=== PATIENT | female | born 1950 | race Caucasian/White ===

== ENCOUNTER 2023-05-31 11:11 | Emergency (ER) | payer MEDICARE, SELFPAY ==
--- NOTE | ~2023-05-31 | CT_ITS ---
EXAMINATION: CT HEAD WITHOUT CONTRAST CLINICAL INFORMATION: Fall. COMPARISON: None available. TECHNIQUE: Contiguous axial imaging was performed from the skull base to vertex without intravenous administration of contrast. This CT examination was performed using dose optimization techniques as appropriate, variously including the following: *Automated exposure control *Adjustment of mA and/or kV according to patient size (this includes techniques or standardized protocols for targeted exams where dose is matched to indication/reason for exam; i.e. extremities or head) *Use of iterative reconstruction technique DLP: 936 mGy-cm FINDINGS: There is no intracranial hemorrhage. There is no evidence of acute/subacute cerebral or cerebellar infarction. There is no midline shift or mass effect. No extra-axial fluid collection. The ventricles are normal in size. The ocular lenses are surgically absent. The orbits are otherwise unremarkable. The calvarium is intact. The mastoid air cells are well aerated. There is a small amount of mucosal thickening along the posterior wall of the left sphenoid sinus. The visualized paranasal sinuses are otherwise clear. CT/CT head/brain wo IV con IMPRESSION: No acute intracranial pathology.
--- NOTE | ~2023-05-31 | XR_ITS ---
EXAMINATION: XR RIGHT SHOULDER XR RIGHT WRIST XR RIGHT ELBOW CLINICAL INFORMATION: Status post fall. Right shoulder and right arm pain. COMPARISON: None. TECHNIQUE: AP, lateral and oblique views of the right elbow were obtained. PA and lateral views of the right wrist were obtained. AP, Grashey and transscapular Y views of the right shoulder were obtained. FINDINGS: There is decreased bone mineralization. Right shoulder: There is a comminuted fracture involving the surgical neck of the humerus with associated fracture of the glenoid. There is displaced fracture of the greater tuberosity. There is a sizable joint lipohemarthrosis. Acromioclavicular joint is intact. 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 There is fusion of the carpal metacarpal joints as well as the interphalangeal joints. There is subluxation at the MCP joints. Right elbow: Anatomic alignment. 3 mm well-corticated calcification is seen within the soft tissues along the medial epicondyle. No surrounding soft tissue swelling. Spurring of the olecranon. No significant joint effusion. XR/XR elbow RT min 3V IMPRESSION: Comminuted impacted fracture involving the surgical neck humerus with associated fractures of the glenoid and greater tuberosity. There is a sizable joint lipohemarthrosis.
--- NOTE | ~2023-05-31 | XR_ITS ---
EXAMINATION: XR RIGHT SHOULDER XR RIGHT WRIST XR RIGHT ELBOW CLINICAL INFORMATION: Status post fall. Right shoulder and right arm pain. COMPARISON: None. TECHNIQUE: AP, lateral and oblique views of the right elbow were obtained. PA and lateral views of the right wrist were obtained. AP, Grashey and transscapular Y views of the right shoulder were obtained. FINDINGS: There is decreased bone mineralization. Right shoulder: There is a comminuted fracture involving the surgical neck of the humerus with associated fracture of the glenoid. There is displaced fracture of the greater tuberosity. There is a sizable joint lipohemarthrosis. Acromioclavicular joint is intact. 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 There is fusion of the carpal metacarpal joints as well as the interphalangeal joints. There is subluxation at the MCP joints. Right elbow: Anatomic alignment. 3 mm well-corticated calcification is seen within the soft tissues along the medial epicondyle. No surrounding soft tissue swelling. Spurring of the olecranon. No significant joint effusion. XR/XR shoulder RT min 2V IMPRESSION: Comminuted impacted fracture involving the surgical neck humerus with associated fractures of the glenoid and greater tuberosity. There is a sizable joint lipohemarthrosis.
--- NOTE | ~2023-05-31 | CT_ITS ---
EXAMINATION: CT CERVICAL SPINE WITHOUT CONTRAST CLINICAL INFORMATION: Status post fall. COMPARISON: None available. TECHNIQUE: Noncontrast computed tomography of the cervical spine was performed. This CT examination was performed using dose optimization techniques as appropriate, variously including the following: *Automated exposure control *Adjustment of mA and/or kV according to patient size (this includes techniques or standardized protocols for targeted exams where dose is matched to indication/reason for exam; i.e. extremities or head) *Use of iterative reconstruction technique DLP: 936 mGy-cm FINDINGS: There is straightening of the cervical lordosis. There is trace retrolisthesis of C3 in relation to C4. There is trace retrolisthesis of C5 in relation to C6. There is trace anterolisthesis of C6 in relation to C7. The vertebral bodies demonstrate preserved stature. The facet joints are anatomically aligned. There is significant bilateral multilevel facet joint arthropathy. The C1-C2 relationship is anatomic. There is significant degenerative disease involving the atlantoaxial joint on the left. The dens is intact. Prevertebral soft tissue is normal in appearance. There is no cervical spine fracture. Paraspinal soft tissue is within normal limits. There is moderate spinal canal stenosis at C5-C6. The visualized lung apices are clear. The thyroid gland is normal in appearance. CT/CT cervical spine wo IV con IMPRESSION: No acute osseous cervical spine abnormality. There is multilevel cervical spondylosis, moderate in severity as described. Fleischner guidelines were followed.
--- NOTE | ~2023-05-31 | XR_ITS ---
EXAMINATION: XR RIGHT SHOULDER XR RIGHT WRIST XR RIGHT ELBOW CLINICAL INFORMATION: Status post fall. Right shoulder and right arm pain. COMPARISON: None. TECHNIQUE: AP, lateral and oblique views of the right elbow were obtained. PA and lateral views of the right wrist were obtained. AP, Grashey and transscapular Y views of the right shoulder were obtained. FINDINGS: There is decreased bone mineralization. Right shoulder: There is a comminuted fracture involving the surgical neck of the humerus with associated fracture of the glenoid. There is displaced fracture of the greater tuberosity. There is a sizable joint lipohemarthrosis. Acromioclavicular joint is intact. 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 There is fusion of the carpal metacarpal joints as well as the interphalangeal joints. There is subluxation at the MCP joints. Right elbow: Anatomic alignment. 3 mm well-corticated calcification is seen within the soft tissues along the medial epicondyle. No surrounding soft tissue swelling. Spurring of the olecranon. No significant joint effusion. XR/XR hand wrist RT IMPRESSION: Comminuted impacted fracture involving the surgical neck humerus with associated fractures of the glenoid and greater tuberosity. There is a sizable joint lipohemarthrosis.
--- NOTE | 2023-05-31 11:25 | ED_ITS ---
HPI - General Adult General Chief complaint: Fall Stated complaint: fell outside, R shoulder and finger inj Time Seen by Provider: 05/31/23 12:02 Source: patient and family (patient's ) Mode of arrival: ambulatory Limitations: no limitations History of Present Illness HPI narrative: Patient is a 73 year old assigned female at with a history of atrial fib, takes eliquis, presenting to the emergency department today with right shoulder pain after a fall. Patient states that she tripped after missing a step and fell on her right side. Patient denies any loss of consciousness or head strike. Patient denies any dizziness, lightheadedness, abdominal pain, nausea, vomiting, fever, chills, blurry vision, double vision, loss of vision, chest pain, difficulty breathing, shortness of breath, back pain, night sweats, pain with urination, increased urinary frequency, increased urinary urgency, blood in her urine or stool, syncope or a near syncopal episode, bowel incontinence, bladder incontinence, bowel retention, bladder retention, or any other complaints at this time. Onset (ago): minute(s) Location: right and upper extremity Severity: moderate Severity scale (1-10): 5 Quality: aching Pain Consistency: constant Relieving factors: immobilization Exacerbating factors: movement Associated symptoms: denies other symptoms Treatments prior to arrival: none Related Data Previous Rx's Medication Instructions Recorded tramadol 50 mg tablet 50 mg PO Q6H PRN pain #7 tabs 05/31/23 Allergies Allergy/AdvReac Type Severity Reaction Status Date / Time No Known Allergies Allergy Verified 05/31/23 11:27 Review of Systems Constitutional: Constitutional: Reports no additional constitutional complaints, Denies chills, Denies fever(s) and Denies night sweats Eyes: Eyes: Reports no additional eye complaints, Denies blurry vision, Denies change in vision, Denies diplopia, Denies eye discharge, Denies loss of vision and Denies eye pain ENT: Denies dizziness Cardiovascular: Cardiovascular: Reports no additional cardiovascular complaints, Denies chest pain, Denies lightheadedness, Denies Loss of Consciousness and Denies dyspnea Respiratory: Respiratory: Reports no additional respiratory complaints and Denies dyspnea Gastrointestinal: Gastrointestinal: Reports no additional gastrointestinal complaints, Denies abdominal pain, Denies melena, Denies hematochezia, Denies change in bowel habits and Denies change in stool character Genitourinary: Genitourinary: Denies hematuria, Denies urinary frequency, Denies dysuria, Denies urinary incontinence, Denies urinary hesitancy and Denies urinary urgency Musculoskeletal: Musculoskeletal: Reports no additional musculoskeletal complaints, Denies numbness and Denies tingling Comments: right shoulder pain Neurologic: Denies dizziness, Denies loss of vision, Denies numbness and Denies tingling Psychiatric: Psychiatric: Reports no additional psychiatric complaints Endocrine: Endocrine: Reports no additional endocrine complaints Hematologic/Lymphatic: Hematologic/Lymphatic: Reports no additional hematologic/lymphatic complaints Allergic/Immunologic: Allergic/Immunologic: Reports no additional allergic/immunologic complaints PMFSH Past Medical History Attestation statement: The following information was validated with the patient. (patient's validated all information) Source: old records reviewed, obtained from family (patient's provided additional history and confirmed the history provided by the patient.) and nursing notes reviewed Medical History Rheumatoid arthritis Aortic stenosis Mitral regurgitation Afib Surgical History H/O foot surgery History of partial hysterectomy H/O hand surgery Social History Social History Alcohol intake: current Alcohol intake frequency: holidays/special occasions only Smoked in Last 30 Days: No Use of substances other than those prescribed or required for medical reasons: No Advance Directives: No Advance Directives Information Provided: Yes Physical Exam ED Vital Signs: Vital Signs - 24 hr 05/31/23 11:26 05/31/23 12:43 05/31/23 14:59 Temperature 97.5 F 97.9 F 98.2 F Pulse Rate 71 74 68 Respiratory Rate 18 18 18 Blood Pressure 133/84 132/91 H 123/71 Pulse Oximetry 95 95 95 Oxygen Delivery Method Room Air Room Air Room Air BMI result Body Mass Index 27.3 Const General: cooperative, no acute distress, alert and awake Nutritional Appearance: well nourished Orientation/consciousness: patient oriented x3 Limitations: no limitations HENMT Head: Yes normal to inspection and Yes atraumatic Ears: hearing grossly normal bilaterally and external ears normal General nose exam: Normal external nose present, no nasal discharge noted and no epistaxis Face and sinus: Yes normal facial exam, No abrasion and No laceration Mouth: Normal oral and palatal mucosa present, no drooling and no muffled voice Eyes General: appearance normal, both eyes and all related structures Periorbital: periorbital findings normal Eyelids: Yes eyelids normal Conjunctivae: conjunctivae normal Pupils: Equal, round and reactive pupils present EOM: EOMs intact bilaterally Neck Neck: Yes normal visual inspection, Yes full ROM and Yes no lymphadenopathy Chest Chest palpation & inspection: normal inspection of the chest Resp Effort & Inspection: normal respiratory effort and able to speak in complete sentences GI Inspection: Yes normal to inspection Neuro General: patient oriented x3 and moves all extremities Cranial nerves: Yes Equal, round and reactive pupils present Cognition (Neuro): normal cognition Motor exam (neuro): 5/5 motor strength present throughout Sensory Exam: Normal double simultaneous stimulation for sensation Coordination: [id number] test normal Extrem Other: pain with right shoulder ROM General: Yes capillary refill normal Psych Appearance: grossly normal Mental Status: mental status grossly normal Affect: normal affect Attitude: cooperative Thought process: Normal thought process present Thought content: Normal thought content present Insight: Good insight present (Psych) Course Course Course Narrative: RME- 73 year old female presents for evaluation after a fall. Complains of mostly right shoulder and elbow pain. Also has a laceration of right 3rd finger. She is anticoagulated for a fib with Eliquis. Plan for imaging Medications Administered Discontinued Medications Generic Name Dose Route Start Last Admin Trade Name Italoq PRN Reason Stop Dose Admin Oxycodone HCl 10 mg 05/31/23 13:25 05/31/23 13:32 Oxycodone Hcl Immed Release 5 Mg Tablet PO 05/31/23 13:26 10 mg ONCE ONE Administration Oxycodone HCl 10 mg 05/31/23 15:46 05/31/23 15:55 Oxycodone Hcl Immed Release 5 Mg Tablet PO 05/31/23 15:47 10 mg ONCE ONE Administration Procedures Orthopedic Splinting/Casting Injury #1: Side: right Upper Extremity Injury Location: shoulder Upper Extremity Immobilizer: sling/shoulder immobilizer Medical Decision Making Medical Decision Making [facility] Narrative: Patient is a 73 year old assigned female at with a history of atrial fib, on eliquis, presenting to the emergency department today with right shoulder pain. Patient's physical exam showed pain with right shoulder ROM. Patient's head and C-spine CTs showed no acute process. Patient's right wrist and right elbow x-rays showed no acute process. Patient's right shoulder x-ray showed a humerus fracture. I consulted with the orthopedic team who recommended placing the patient in a sling and having her follow up on an outpatient basis. I explained my physical exam findings as well as all test results to the patient and the patient's . I answered all questions asked by the patient and the patient's . Patient's right arm was placed in a sling, without incident. Patient's PMS was intact prior to and after sling placement. I stressed the importance of the patient taking her medication as prescribed. I stressed the importance of the patient following up with her primary care provider and an orthopedic provider. I stressed the importance of the patient returning to the emergency department immediately if her symptoms were to worsen or if she were to develop any dizziness, shortness of breath, difficulty breathing, chest pain, blurry vision, loss of vision, nausea, vomiting, abdominal pain, fever, chills, back pain, or any other complaints. Patient and the patient's verbalized agreement and understanding with this treatment plan and discharge. Differential Diagnosis Differential Diagnoses: The differential diagnosis associated with the presentation includes Fall Humerus fracture Shoulder pain Shoulder strain Admission/Observation Consideration of admission/observation: Escalation of care including admission/observation considered Patient would have been admitted to the hospital had her work up had any findings where hospital admission was appropriate and her clinical presentation warranted hospital admission. Consult Healthcare Provider Management of the patient was discussed with: Head Waiter/Waitress (spoke to the orthop edic team as noted in the MDM Rationale portion of this note.) Independent Interpretation I performed an independent interpretation of an: Plain X-Ray Interpretation: My interpretation is in agreement with the radiologist's impression of these imaging studies. EXAMINATION: CT HEAD WITHOUT CONTRAST CLINICAL INFORMATION: Fall. COMPARISON: None available. TECHNIQUE: Contiguous axial imaging was performed from the skull base to vertex without intravenous administration of contrast. This CT examination was performed using dose optimization techniques as appropriate, variously including the following: *Automated exposure control *Adjustment of mA and/or kV according to patient size (this includes techniques or standardized protocols for targeted exams where dose is matched to indication/reason for exam; i.e. extremities or head) *Use of iterative reconstruction technique DLP: 936 mGy-cm FINDINGS: There is no intracranial hemorrhage. There is no evidence of acute/subacute cerebral or cerebellar infarction. There is no midline shift or mass effect. No extra-axial fluid collection. The ventricles are normal in size. The ocular lenses are surgically absent. The orbits are otherwise unremarkable. The calvarium is intact. The mastoid air cells are well aerated. There is a small amount of mucosal thickening along the posterior wall of the left sphenoid sinus. The visualized paranasal sinuses are otherwise clear. CT/CT head/brain wo IV con IMPRESSION: No acute intracranial pathology. Dictated By: Macho Schroeder Jr, DO Signed By: Electronically signed by Macho Schroeder Jr, DO 05/31/23 1455 EXAMINATION: CT CERVICAL SPINE WITHOUT CONTRAST CLINICAL INFORMATION: Status post fall. COMPARISON: None available. TECHNIQUE: Noncontrast computed tomography of the cervical spine was performed. This CT examination was performed using dose optimization techniques as appropriate, variously including the following: *Automated exposure control *Adjustment of mA and/or kV according to patient size (this includes techniques or standardized protocols for targeted exams where dose is matched to indication/reason for exam; i.e. extremities or head) *Use of iterative reconstruction technique DLP: 936 mGy-cm FINDINGS: There is straightening of the cervical lordosis. There is trace retrolisthesis of C3 in relation to C4. There is trace retrolisthesis of C5 in relation to C6. There is trace anterolisthesis of C6 in relation to C7. The vertebral bodies demonstrate preserved stature. The facet joints are anatomically aligned. There is significant bilateral multilevel facet joint arthropathy. The C1-C2 relationship is anatomic. There is significant degenerative disease involving the atlantoaxial joint on the left. The dens is intact. Prevertebral soft tissue is normal in appearance. There is no cervical spine fracture. Paraspinal soft tissue is within normal limits. There is moderate spinal canal stenosis at C5-C6. The visualized lung apices are clear. The thyroid gland is normal in appearance. CT/CT cervical spine wo IV con IMPRESSION: No acute osseous cervical spine abnormality. There is multilevel cervical spondylosis, moderate in severity as described. Fleischner guidelines were followed. Dictated By: Macho Schroeder Jr, DO Signed By: Electronically signed by Macho Schroeder Jr, DO 05/31/23 1501 EXAMINATION: XR RIGHT SHOULDER XR RIGHT WRIST XR RIGHT ELBOW CLINICAL INFORMATION: Status post fall. Right shoulder and right arm pain. COMPARISON: None. TECHNIQUE: AP, lateral and oblique views of the right elbow were obtained. PA and lateral views of the right wrist were obtained. AP, Grashey and transscapular Y views of the right shoulder were obtained. FINDINGS: There is decreased bone mineralization. Right shoulder: There is a comminuted fracture involving the surgical neck of the humerus with associated fracture of the glenoid. There is displaced fracture of the greater tuberosity. There is a sizable joint lipohemarthrosis. Acromioclavicular joint is intact. 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 There is fusion of the carpal metacarpal joints as well as the interphalangeal joints. There is subluxation at the MCP joints. Right elbow: Anatomic alignment. 3 mm well-corticated calcification is seen within the soft tissues along the medial epicondyle. No surrounding soft tissue swelling. Spurring of the olecranon. No significant joint effusion. XR/XR hand wrist RT IMPRESSION: Comminuted impacted fracture involving the surgical neck humerus with associated fractures of the glenoid and greater tuberosity. There is a sizable joint lipohemarthrosis. Dictated By: Fernando Holliday MD Signed By: Electronically signed by Fernando Holliday MD 05/31/23 1343 Radiology Impression Discussion of test interpretation with radiology: I have reviewed the radiologist's reading. Independent Historian Clinical information obtained from an independent historian. History obtained from or confirmed by: Spouse (patient's provided additional history and confirmed the history provided by the patient.) Critical Care Time Critical Care Time Critical Care Time: Yes Total Critical Care Time: 45 Attestation: I spent 45 minutes of Critical Care Time with this patient. This does not include time spent on separately reported billable procedures. Discharge Plan Discharge Clinical Impression: Fracture, humerus Patient Disposition: Home, Self-Care Instructions: Arm Fracture in Adults (ED), How to Use a Sling (ED) Additional Instructions: Every 1 hour, take your sling off down and move your wrist + elbow. Follow up with your primary care provider and an orthopedic provider. Take Tylenol and Ibuprofen for pain. Return to the emergency department immediately if your symptoms worsen or if you develop any dizziness, shortness of breath, difficulty breathing, chest pain, blurry vision, loss of vision, nausea, vomiting, abdominal pain, fever, chills, back pain, or any other complaints. Prescriptions: New tramadol 50 mg tablet 50 mg PO Q6H PRN (Reason: pain) Qty: 7 0RF Referrals: [facility] [place] Orthopedic Surgeons [Provider Group] (Call to establish and follow up with an orthopedic provider.) Uko-Abasi,Nohelia, [employer]PR[employer] ENGINEER [Primary Care Provider] - Print Language: Tongan
[2023-05-31 11:26] VITALS: BP 133/84; PULSE 71; RESP 18; TEMP 36.4; O2SAT 95; BMI 27.3
[2023-05-31 12:43] VITALS: BP 132/91; PULSE 74; RESP 18; TEMP 36.6; O2SAT 95
[2023-05-31] MEDS: oxyCODONE HCl Immed Release 5 MG TABLET 10 MG PO ×2 (13:32→15:55)
--- NOTE | 2023-05-31 13:33 | PC.NURSE ---
pt a&ox3, c/o rt arm pain, vss, pt has +csm/pulses to RUE, pt medicated per order, call jackson within reach, will continue to monitor
[2023-05-31 14:59] VITALS: BP 123/71; PULSE 68; RESP 18; TEMP 36.8; O2SAT 95
--- NOTE | 2023-05-31 14:59 | PC.NURSE ---
patient a&ox3, vss, pt c/o 10/08 rt arm pain, pt awaiting radiology results, family at bedside, call jackson within reach, will continue to monitor
== END 2023-05-31 16:28 | disposition home or self-care (01) ==
PROVIDERS: Emergency Provider Emergency Medicine Emergency Medical Services; PCP Nurse Practitioner Family
DX: S42.211A Unspecified displaced fracture of surgical neck of right humerus, initial encounter for closed fracture (principal); M25.521 Pain in right elbow; I48.91 Unspecified atrial fibrillation; Z79.01 Long term (current) use of anticoagulants; W10.9XXA Fall (on) (from) unspecified stairs and steps, initial encounter; Y93.9 Activity, unspecified; Y92.9 Unspecified place or not applicable; Y99.9 Unspecified external cause status
CPT/HCPCS: 70450; 72125; 73030; 73080; 73110; 73130; 99284

== ENCOUNTER 2023-06-01 11:58 | Emergency (ER) | payer MEDICARE, SELFPAY ==
--- NOTE | 2023-06-01 12:02 | ECG_ITS ---
Test Reason : CHEST PAIN Blood Pressure : / mmHG Vent. Rate : 078 BPM Atrial Rate : 078 BPM P-R Int : 192 ms QRS Dur : 082 ms QT Int : 404 ms P-R-T Axes : 054 005 036 degrees QTc Int : 460 ms Normal sinus rhythm Minimal voltage criteria for LVH, may be normal variant ( Sokolow-Goyal ) Borderline ECG No previous ECGs available Referred By: Samir Lamb Electronically Signed By:EBONY HOLLAND
[2023-06-01 12:30] VITALS: BP 139/72; PULSE 78; RESP 20; TEMP 37.3; O2SAT 94; BMI 28.1
--- NOTE | 2023-06-01 12:32 | ED_ITS ---
HPI - General Adult General Chief complaint: Nausea/Vomiting/Diarrhea Stated complaint: rapid heart beat Time Seen by Provider: 06/01/23 13:51 Source: patient Mode of arrival: ambulatory Limitations: no limitations History of Present Illness HPI narrative: A 73-year-old female history of AFib on Eliquis presenting to the emergency department with complaints of right shoulder pain after fall yesterday, patient was diagnosed with a humerus fracture, she was seen here in the emergency department, discharged home with pain medicine. Despite taking pain medicine patient reports pain is worsening. She reports the pain is so severe that she gets palpitations and shortness of breath at times. She tells me that the pain medicine she was sent home with is making her nauseous. She comes in primarily for pain control. Denies chest pain, shortness of breath, nausea, vomiting, abdominal pain, headache, vision changes, dizziness and weakness. No numbness or tingling at this time. Patient has not yet seen ortho. Related Data Home Medications Medication Instructions Recorded Confirmed Vitamin D3 50,000 units PO QWEEK 06/02/23 06/02/23 apixaban 5 mg tablet (Eliquis) 5 mg PO BID 06/02/23 06/02/23 diltiazem HCl 240 mg 240 mg PO DAILY 06/02/23 06/02/23 capsule,extended release 24 hr donepezil 5 mg tablet 5 mg PO BEDTIME 06/02/23 06/02/23 levothyroxine 75 mcg tablet 75 mcg PO DAILY 06/02/23 06/02/23 losartan 25 mg tablet 25 mg PO DAILY 06/02/23 06/02/23 Previous Rx's Medication Instructions Recorded tramadol 50 mg tablet 50 mg PO Q6H PRN pain #7 tabs 05/31/23 acetaminophen 325 mg capsule 650 mg (2 x 325 mg) PO Q4H PRN 06/02/23 (Tylenol) pain #30 caps hydromorphone 2 mg tablet 2 mg PO Q6H PRN pain 7 days #28 06/02/23 (Dilaudid) tabs Allergies Allergy/AdvReac Type Severity Reaction Status Date / Time latex Allergy Itching Verified 06/01/23 12:33 Review of Systems 2 Review of Systems: Yes all other systems are reviewed and are negative PMFSH Past Medical History Attestation statement: The following information was validated with the patient. Source: old records reviewed and nursing notes reviewed Medical History Rheumatoid arthritis Aortic stenosis Mitral regurgitation Afib Surgical History H/O foot surgery History of partial hysterectomy H/O hand surgery Social History Social History Alcohol intake: current Alcohol intake frequency: holidays/special occasions only Smoked in Last 30 Days: No Use of substances other than those prescribed or required for medical reasons: No Advance Directives: No Advance Directives Information Provided: No Physical Exam ED Vital Signs: Vital Signs - 24 hr 06/01/23 12:30 06/01/23 15:37 06/01/23 18:06 Temperature 99.1 F 98.7 F 98.4 F Pulse Rate 78 74 73 Respiratory Rate 20 16 16 Blood Pressure 139/72 132/65 121/68 Pulse Oximetry 94 94 93 Oxygen Delivery Method Room Air Room Air Room Air 06/01/23 22:41 06/02/23 00:20 06/02/23 02:26 Temperature 98.1 F 98.6 F 98.0 F Pulse Rate 77 66 75 Respiratory Rate 14 16 14 Blood Pressure 126/70 118/66 113/50 L Pulse Oximetry 92 92 92 Oxygen Delivery Method Room Air Room Air Room Air 06/02/23 06:08 06/02/23 08:14 Temperature 98.5 F 98.3 F Pulse Rate 77 73 Respiratory Rate 20 16 Blood Pressure 125/73 115/68 Pulse Oximetry 93 97 Oxygen Delivery Method Room Air Room Air BMI result Body Mass Index 28.1 vss Appearance: Alert.? Oriented X3.? No acute distress.? Appears uncomfortable and anxious. Head: Normocephalic, atraumatic, no step-offs or deformities Eyes: Pupils equal, round and reactive to light.? ENT: Pharynx normal.? Neck: Normal inspection.? Neck supple.? CVS: Normal heart rate and rhythm.? Pulses normal.? Respiratory: No respiratory distress.? Breath sounds normal.? Abdomen: Soft and nontender.? Skin: Skin warm and dry.? Normal skin color.? Normal skin turgor.? Extremities: No lower extremity edema.? No calf ttp. 5/5 strength to bilateral upper and lower extremities 2+ radial pulses equal bilateral. Patient in a right shoulder sling. Normal sensation distally. Capillary refill less than 2 seconds to bilateral upper extremity digits + TT to right humeral head Neuro: Oriented X 3.? No motor deficit.? No sensory deficit. CN 2-12 intact Course Course Course Narrative: RME- 73 year old female presents for evaluation of right shoulder pain. She fractured her proximal right humerus yesterday. She also complains of anxiety. She was given Tramadol prescription yesterday. Reevaluation(s) Reevaluation #1: Patient's CBC unremarkable. Chemistry no acute findings. Troponin negative, EKG nonischemic. Patient is saturating well on room air 95-97%. Patient was still uncomfortable in additional mg of Dilaudid ordered. I did speak to family who feels like patient would benefit from physical therapy and case management. Plan at this time is to hold patient in observation so she can be evaluated by physical therapy and case management. Patient verbalizes understanding to this plan and she agrees with plan. Pain better controlled. I also spoke to Orthopedics who will be on the look out for her call on Saturday. No need for hospitalization or surgical procedure emergently Time: 15:56 Reevaluation #2: Patient seen by case management patient will go home with [facility] referral. Spoke to patient and daughter. I agree w/ plan. Stop tramdol and start Dilaudid Safe narcotic handling was discussed with patient and outlined on discharge Time: 10:41 Medications Administered Generic Name Dose Route Start Last Admin Trade Name Freq PRN Reason Stop Dose Admin Acetaminophen 650 mg 06/01/23 15:54 06/02/23 06:13 Acetaminophen 325 Mg Tablet PO 650 mg Q4H PRN Administration Pain, Mild (Pain Scale 1-3) Hydromorphone HCl 2 mg 06/01/23 15:54 06/02/23 06:13 Hydromorphone Hcl 2 Mg Tablet PO 2 mg Q6H PRN Administration Pain, Severe (Pain Scale 7-10) Discontinued Medications Generic Name Dose Route Start Last Admin Trade Name Freq PRN Reason Stop Dose Admin Acetaminophen 975 mg 06/01/23 15:28 06/01/23 15:41 Acetaminophen 325 Mg Tablet PO 06/01/23 15:29 975 mg ONCE ONE Administration Hydromorphone HCl 1 mg 06/01/23 13:54 06/01/23 14:53 Hydromorphone Hcl 2 Mg Tablet PO 06/01/23 13:55 1 mg ONCE ONE Administration Hydromorphone HCl 1 mg 06/01/23 15:28 06/01/23 15:40 Hydromorphone Hcl 2 Mg Tablet PO 06/01/23 15:29 1 mg ONCE ONE Administration Medical Decision Making Medical Decision Making [facility] Narrative: 73-year-old female presents with complaints of right shoulder pain, patient was diagnosed with a proximal right humerus fracture yesterday and presents today with increasing pain despite tramadol. Physical examination patient in a sling.TT to right humeral head Neurovascular status intact. Normal sensation. History and physical exam consistent with pain secondary to humerus fracture. Unlikely neurovascular compromise, threat to Limb, arterial or venous occlusion, compartment syndrome. Unlikely atypical presentation of ACS, PE or dissection. Last night there could have been an error with the monitor. Patient is saturating 96-97% here in the department. No lower extremity edema unlikely a DVT patient also anticoagulated. If patient was in AFib yesterday it is possible there was a mixed match with O2 sat on the probe. Plan at this time will medicate and put her in for physical therapy, case management. Differential Diagnosis Differential Diagnoses: The differential diagnosis associated with the presentation includes History and physical exam consistent with pain secondary to humerus fracture. Unlikely neurovascular compromise, threat to Limb, arterial or venous occlusion, compartment syndrome. Unlikely atypical presentation of ACS, PE or dissection. Last night there could have been an error with the monitor. Patient is saturating 96-97% here in the department. No lower extremity edema unlikely a DVT patient also anticoagulated. If patient was in AFib yesterday it is possible there was a mixed match with O2 sat on the probe. Admission/Observation Consideration of admission/observation: Escalation of care including admission/observation considered Unlikely Lab Data [facility] Lab Attestation statement: I reviewed the patient's lab results. 06/01/23 15:26 06/01/23 15:26 Labs: Lab Results 06/01/23 Range/Units 15:26 WBC 9.0 (4.8-10.8) X10*3/uL RBC 4.16 L (4.20-5.50) X10*6/uL Hgb 12.3 (12.0-16.0) g/dl Hct 37.1 (37.0-47.0) % MCV 89.2 (80.0-98.0) fL MCH 29.6 (27.0-33.0) pg MCHC 33.2 (31.0-35.0) g/dl RDW 14.2 (11.0-16.0) % Plt Count 289 (160-400) X10*3/uL MPV 9.5 (9.4-12.3) fL Immature Gran % (Auto) 0.3 (0.0-0.4) % Neut % (Auto) 72.6 (45-73) % Lymph % (Auto) 18.6 L (20-40) % [place] % (Auto) 7.5 (2-11) % Eos % (Auto) 0.7 (0-4) % Baso % (Auto) 0.3 (0-2) % Lymph # (Auto) 1.7 (1.2-4.9) X10*3/uL [place] # (Auto) 0.7 (0.1-1.2) X10*3/uL Eos # (Auto) 0.1 (0.0-0.4) X10*3/uL Baso # (Auto) 0.0 (0.0-0.2) X10*3/uL Abs Immat Gran (auto) 0.03 (0.00-0.03) X10*3/uL Absolute Neuts (auto) 6.5 (2.0-8.3) x10*3/uL Absolute Nucleated RBC 0.000 (0.0-0.012) X10*3/uL Nucleated RBC % (auto) 0.0 (0.0-0.2) /100WBC Sodium 138 (135-145) mmol/L Potassium 4.3 (3.3-5.1) mmol/L Chloride 101 (96-108) mmol/L Carbon Dioxide 27 (22-29) mmol/L Anion Gap 14 (12-20) BUN 17 H (9-16) mg/dL Creatinine 0.67 (0.5-1.4) mg/dL Estim Creat Clear Calc 74.2 Estimated GFR > 60 Random Glucose 111 (60-115) mg/dL Calcium 9.1 (8.4-10.2) mg/dL Total Bilirubin 0.5 (0.0-1.0) mg/dL AST 18 (5-31) U/L ALT 27 (0-31) U/L Alkaline Phosphatase 81 (39-117) U/L Troponin I High Sens 6.2 (<3.5-17.0) ng/L Total Protein 7.0 (6.5-8.0) g/dL Albumin 3.9 (3.5-5.0) g/dL Independent Interpretation I performed an independent interpretation of an: EKG (Vent. Rate : 078 BPM Atrial Rate : 078 BPM P-R Int : 192 ms QRS Dur : 082 ms QT Int : 404 ms P-R-T Axes : 054 005 036 degrees QTc Int : 460 ms Normal sinus rhythm Minimal voltage criteria for LVH, may be normal variant ( Sokolow-Goyal ) Borderline ECG No previous ECGs a) and Plain X-Ray ( XR/XR hand wrist RT IMPRESSION: Comminuted impacted fracture involving the surgical neck humerus with associated fractures of the glenoid and greater tuberosity. There is a sizable joint lipohemarthrosis. ) Interpretation: Reviewed from yesterday Radiology Impression Discussion of test interpretation with radiology: I have reviewed the radiologist's reading. External Record Review External record reviewed: Inpatient record, Office record, Outpatient record, Prior outpatient labs, Prior outpatient radiology, Primary care record and Outside ED record Prescription Management I considered prescription management with: Pain Medication Chronic Conditions Patient?s care impacted by: Other (afib on coumadin ) Critical Care Time Critical Care Time Critical Care Time: Yes Total Critical Care Time: 35 Attestation: I attest to this time spent taking care of the patient, obtaining history, physical, reviewing labs, imaging, speaking to my attending, speaking to specialist. Discharge Plan Discharge Clinical Impression: Humeral fracture, Anxiety Patient Disposition: Home, Self-Care Instructions: Anxiety (ED) Additional Instructions: Take your medications as prescribed. If you were prescribed antibiotics today, it is important that you take your medication to their entirety, do not skip any doses, do not finish them early. Follow-up with your primary care provider this week. Return to the emergency department with new or worsening symptoms. In case of emergency call 911 Call ortho tomorrow. A narcotic has been sent to your pharmacy please take this as prescribed. Do not take more than the prescribed dose. Narcotic medications can cause addiction. Please do not mix them with alcohol. Do not take them while driving or operating machinery. Do not take them with any other narcotics. Do not share them with friends or family. They can cause constipation. Take them only for severe pain. This medication can cause increased risk for falls Prescriptions: New acetaminophen [Tylenol] 325 mg capsule 650 mg PO Q4H PRN (Reason: pain) Qty: 30 0RF hydromorphone [Dilaudid] 2 mg tablet 2 mg PO Q6H PRN (Reason: pain) 7 Days Qty: 28 0RF Rx Instructions: Partial Fill upon patient request. No Action tramadol 50 mg tablet 50 mg PO Q6H PRN (Reason: pain) Qty: 7 0RF donepezil 5 mg tablet 5 mg PO BEDTIME diltiazem HCl 240 mg capsule,extended release 24hr 240 mg PO DAILY levothyroxine 75 mcg Tablet 75 mcg PO DAILY losartan 25 mg tablet 25 mg PO DAILY Eliquis 5 mg Tablet 5 mg PO BID Vitamin D3 50,000 units PO QWEEK Referrals: [facility] Orthopedic Surgeons [Provider Group] - 1 day ( XR/XR hand wrist RT IMPRESSION: Comminuted impacted fracture involving the surgical neck humerus with associated fractures of the glenoid and greater tuberosity. There is a sizable joint lipohemarthrosis.)
[2023-06-01] MEDS: HYDROmorphone HCl 2 MG TABLET 1 MG PO ×2 (14:53→15:40)
--- NOTE | 2023-06-01 14:54 | PC.NURSE ---
pt tearful d/t pain. medication administered per provider order. effectiveness pending. respirations even and unlabored. plan of care ongoing at this time. call [facility] placed within reach.
[2023-06-01 15:30] LABS: MANUAL DIFF FLAG NO
[2023-06-01 15:32] LABS: Basophils Percent Auto 0.3 % (0-2); Eosinophils Absolute Auto 0.1 X10*3/uL (0.0-0.4); Eosinophils Percent Auto 0.7 % (0-4); Hematocrit 37.1 % (37.0-47.0); Hemoglobin 12.3 g/dl (12.0-16.0); Imm Gran Abs Auto 0.03 X10*3/uL (0.00-0.03); Imm Gran Pct Auto 0.3 % (0.0-0.4); Lymphocytes Absolute Auto 1.7 X10*3/uL (1.2-4.9); Lymphocytes Percent Auto 18.6 % (20-40); Mean Corpuscular HGB Conc 33.2 g/dl (31.0-35.0); Mean Corpuscular Hemoglobin 29.6 pg (27.0-33.0); Mean Corpuscular Volume 89.2 fL (80.0-98.0); Mean Platelet Volume 9.5 fL (9.4-12.3); Monocytes Absolute Auto 0.7 X10*3/uL (0.1-1.2); Monocytes Percent Auto 7.5 % (2-11); Neutrophils Absolute Auto 6.5 x10*3/uL (2.0-8.3); Neutrophils Percent Auto 72.6 % (45-73); Platelet Count 289 X10*3/uL (160-400); Red Blood Count 4.16 X10*6/uL (4.20-5.50); Red Cell Distribution Width 14.2 % (11.0-16.0)
[2023-06-01 15:37] VITALS: BP 132/65; PULSE 74; RESP 16; TEMP 37.1; O2SAT 94
[2023-06-01] MEDS: Acetaminophen 325 MG TABLET 975 MG PO (15:41)
--- NOTE | 2023-06-01 15:42 | PC.NURSE ---
ED provider bedside speaking w/ pt. pt remains extremely tearful d/t pain despite medication administration. pt verbalizing pain in the RUE is a 10/10 at this time. medication administered per provider order. effectiveness pending. respirations remain even and unlabored. bedside for support. call [facility] placed within reach.
[2023-06-01 15:44] LABS: Alanine Aminotransferase 27 U/L (0-31); Albumin Level 3.9 g/dL (3.5-5.0); Alkaline Phosphatase 81 U/L (39-117); Anion Gap 14 (12-20); Aspartate Amino Transferase 18 U/L (5-31); Bilirubin Total 0.5 mg/dL (0.0-1.0); Blood Urea Nitrogen 17 mg/dL (9-16); Calcium 9.1 mg/dL (8.4-10.2); Carbon Dioxide 27 mmol/L (22-29); Chloride 101 mmol/L (96-108); Creatinine Clr Calc Pharmacy 74.2; Estimated Glomerular Filt Rate > 60; Glucose Random 111 mg/dL (60-115); Potassium 4.3 mmol/L (3.3-5.1); Sodium 138 mmol/L (135-145)
[2023-06-01 15:51] LABS: Troponin-I High Sensitivity 6.2 ng/L (<3.5-17.0)
[2023-06-01 18:06] VITALS: BP 121/68; PULSE 73; RESP 16; TEMP 36.9; O2SAT 93
--- NOTE | 2023-06-01 18:08 | PC.NURSE ---
vss and up to date at this time. pt verbalizing pain level decreased to a 5/10 post medication administration but unable to find a comfortable position. pt verbalizing she feels much better at this time even though after ambulating to the restroom, her pain doubled. ice pack applied to right shoulder to promote comfort. no sob/wob noted at this time. respirations remain even and unlabored. call [facility] placed within reach.
[2023-06-01] MEDS: Acetaminophen 325 MG TABLET 650 MG PO (22:36)
[2023-06-01] MEDS: HYDROmorphone HCl 2 MG TABLET PO (22:36)
[2023-06-01 22:41] VITALS: BP 126/70; PULSE 77; RESP 14; TEMP 36.7; O2SAT 92
[2023-06-02 00:20] VITALS: BP 118/66; PULSE 66; RESP 16; TEMP 37; O2SAT 92
--- NOTE | 2023-06-02 02:25 | PC.NURSE ---
med req completed
[2023-06-02 02:26] VITALS: BP 113/50; PULSE 75; RESP 14; TEMP 36.7; O2SAT 92
[2023-06-02 06:08] VITALS: BP 125/73; PULSE 77; RESP 20; TEMP 36.9; O2SAT 93
[2023-06-02] MEDS: Acetaminophen 325 MG TABLET 650 MG PO (06:13)
[2023-06-02] MEDS: HYDROmorphone HCl 2 MG TABLET PO (06:13)
[2023-06-02 08:14] VITALS: BP 115/68; PULSE 73; RESP 16; TEMP 36.8; O2SAT 97
--- NOTE | 2023-06-02 08:21 | PC.NURSE ---
pt is a/o x 4 no sob/emily noted speaks in full sentences. 02 sat 96% on r/a. pt c/o 07/09 r shoulder pain. pt r shoulder/arm in a r sling. pt is still in her street clothing. this rn encouraged pt to change into hosp garment after her next pain med administration. pt aware of plan of care. will continue to and monitor.
--- NOTE | 2023-06-02 10:41 | MHC.CM.ED ---
Received consult for assessment of d/c needs: pt w/new right humerus fx and experiencing high levels of pain. Pt resides w/spouse who is s/p NSTEMI. Pt's dtr assists as needed - pt has no DME or services. Discussed pain relief w/po Dilaudid: pt pleased w/this med and feels she can manage if her pain is controlled. Pt receptive to [facility] referral for neuro/vascular assessments to right arm and pain management. Pt's dtr Elisabeth to transport pt to home today.
[2023-06-02 11:07] VITALS: BP 130/65; PULSE 77; RESP 16; TEMP 36.3; O2SAT 98
== END 2023-06-02 11:08 | disposition home or self-care (01) ==
PROVIDERS: Physician Assistant; Emergency Provider Emergency Medicine Emergency Medical Services; PCP Nurse Practitioner Family
DX: S42.201A Unspecified fracture of upper end of right humerus, initial encounter for closed fracture (principal); X58.XXXA Exposure to other specified factors, initial encounter; Y93.9 Activity, unspecified; Y92.9 Unspecified place or not applicable; Y99.9 Unspecified external cause status; F41.9 Anxiety disorder, unspecified; M25.511 Pain in right shoulder; I48.91 Unspecified atrial fibrillation; Z79.01 Long term (current) use of anticoagulants
CPT/HCPCS: 36415; 80053; 84484; 85025; 93005; 99283; 99285

== ENCOUNTER → 2023-06-01 12:02 | Outpatient (BNV) | payer MEDICARE, SELFPAY | PROVIDERS: Emergency Provider Emergency Medicine Emergency Medical Services; PCP Nurse Practitioner Family; Visit Provider Internal Medicine | DX: R07.9 Chest pain, unspecified (principal) | CPT/HCPCS: 93010 ==

== ENCOUNTER 2023-06-03 14:26 | Outpatient (AMB) | payer MEDICARE, SELFPAY ==
--- NOTE | 2023-06-03 14:37 | MHC.OFFVIS ---
Intake Vital Signs 06/03/23 14:41 Height 5 ft 5 in Weight 169 lb BMI 28.1 Intake Visit Reasons: FC-Right Humeral fracture-DOI 05/31/23 Intake Note: Quinn a 73 year old right hand dominant female presents today for an ER follow up of right humeral fx, DOI 05/31/23. Patient reports having a fall, landing on her right side while going up cement steps here at [facility]. She presented to [facility] ED where xrays were taken and placed in a splint. Currently her pain is tolerable with pain medication, however after about 4 hours after taking medication her pain returns. States sharp pain in shoulder and throbbing pain in bicep area. Denies numbness or tingling. Allergies latex Allergy (Verified 06/03/23 14:50) Itching Medication List - Last Reconciled 06/03/23 by Sunitha Hurd PA-C acetaminophen (Tylenol) 650 mg (2 x 325 mg) PO Q4H PRN apixaban (Eliquis) 5 mg PO BID diltiazem HCl 240 mg PO DAILY donepezil 5 mg PO BEDTIME hydromorphone (Dilaudid) 2 mg PO Q6H PRN 7 days levothyroxine 75 mcg PO DAILY losartan 25 mg PO DAILY tramadol 50 mg PO Q6H PRN [Vitamin D3 50,000 multiple units PO QWEEK] HPI FC-Right Humeral fracture-DOI 05/31/23 HPI Details 73-year-old right hand dominant female who presents to the office today for an ER follow-up of right humerus injury s/p fall and landing on her right side while going up the cement steps at [facility], 05/31/23. She was seen at ED where x-rays were performed and she was placed in a splint. She currently states she has a sharp pain in her shoulder and throbbing pain in her bicep area which has been tolerable due to the pain medication however the pain returns after 4 hours of taking the medication. She denies any numbness or tingling. Prior to her injury, she was independent with all ADL's. She takes Eliquis for afib. She lives at home with her who is participating in cardiac rehab. She states her daughter also lives with them. [facility] Medical History Rheumatoid arthritis Aortic stenosis Mitral regurgitation Afib Surgical History H/O foot surgery History of partial hysterectomy H/O hand surgery Social History (Updated 06/03/23 @ 14:41 by GIOVANNY Aguiar) Alcohol intake: current Alcohol intake frequency: holidays/special occasions only Patient Tobacco Use Status: Former Tobacco user Current occupational status: retired Current occupation: right hand dominant Review of Systems Const All systems reviewed & are unremarkable except as noted in HPI and below Physical Exam Vital Signs: BMI result Body Mass Index 28.1 Const General: cooperative and no acute distress Orientation/consciousness: patient oriented x3 Resp Effort & Inspection: normal respiratory effort and able to speak in complete sentences Cardio Peripheral pulses: Peripheral pulses 2+ throughout Neuro General: patient oriented x3 Extrem Other: Right shoulder: Normal to inspection. Diffuse Swelling and tenderness over the proximal humerus which extends down the arm. Anterior deltoid sensation intact. Elbow and wrist ROM intact. NVI. Office Procedures Fracture Care Fracture Billing Code: Fracture Billing Code Results Reviewed Results Reviewed: xrays of the right shoulder obtained in the ED show proximal humerus fracture with associated fracture/displacement of the glenoid. Assessment & Plan Assessment & Plan (1) Fracture of proximal end of right humerus: Code(s): S42.201A - Unspecified fracture of upper end of right humerus, initial encounter for closed fracture Qualifiers: Encounter type: initial encounter Fracture type: closed Fracture morphology: other fracture Fracture alignment: displaced Qualified Code(s): S42.291A - Other displaced fracture of upper end of right humerus, initial encounter for closed fracture (2) Fracture of glenoid cavity of right scapula: Code(s): S42.141A - Displaced fracture of glenoid cavity of scapula, right shoulder, initial encounter for closed fracture Qualifiers: Encounter type: initial encounter Fracture type: closed Fracture alignment: displaced Qualified Code(s): S42.141A - Displaced fracture of glenoid cavity of scapula, right shoulder, initial encounter for closed fracture Plan A CT scan of the right shoulder has been ordered to further evaluate the extent of the fracture and glenoid. I briefly discussed treatment options which could include surgical vs nonsurgical interventions. In the meantime, she will continue to use her sling; which she can remove for showering and elbow ROM which I did demonstrated in the office today. She will see us back once the scan is complete. Orders: Orders CT shoulder RT wo IV con Today S42.141A - Displaced fracture of glenoid cavity of scapula, right shoulder, initial encounter for closed fracture, S42.201A - Unspecified fracture of upper end of right humerus, initial encounter for closed fracture Patient Instructions: Scribed for Sunitha Hurd PA-C, by Eddie Tamez medical artist, on 06/03/2023 at 2:30 PM EST. Sunitha Gresham PA-C, have personally reviewed and agree with the information entered by the scribe. Coding Level of Care Code New Pt Level 3 (76669) Diagnoses Other closed displaced fracture of proximal end of right humerus, initial encounter S42.291A Encounter type: initial encounter Fracture type: closed Fracture morphology: other fracture Fracture alignment: displaced Closed displaced fracture of glenoid cavity of right scapula, initial encounter S42.141A Encounter type: initial encounter Fracture type: closed Fracture alignment: displaced CPT Codes Fracture Care - Fracture Billing Code: Fracture Billing Code ([id number])
[2023-06-03 14:41] VITALS: BMI 28.1
== END 2023-06-03 15:09 | disposition home or self-care (01) ==
PROVIDERS: PCP Nurse Practitioner Family; Visit Provider Physician Assistant
DX: S42.291A Other displaced fracture of upper end of right humerus, initial encounter for closed fracture (principal); S42.141A Displaced fracture of glenoid cavity of scapula, right shoulder, initial encounter for closed fracture
CPT/HCPCS: 99203

== ENCOUNTER → 2023-06-03 14:26 | Outpatient (BNVA) | payer MEDICARE, SELFPAY | PROVIDERS: PCP Nurse Practitioner Family; Visit Provider Physician Assistant | DX: S42.291A Other displaced fracture of upper end of right humerus, initial encounter for closed fracture (principal); S42.141A Displaced fracture of glenoid cavity of scapula, right shoulder, initial encounter for closed fracture | CPT/HCPCS: 99202 ==

== ENCOUNTER 2023-06-11 07:45 | Outpatient (AMB) | payer MEDICARE, SELFPAY ==
--- NOTE | 2023-06-11 07:55 | A.OFFVIS_ITS ---
Intake Vital Signs 06/11/23 07:57 Height 5 ft 5 in Weight 169 lb 12.095 oz BMI 28.2 BP 159/76 H Blood Pressure Location Lt brachial Position Sitting Pulse 69 Intake Visit Reasons: Colonoscopy screening Intake Note: Quinn presents in the office as a new patient colonoscopy screening. CC: She states that she does have a concern - she has had frequent bowel movements in the past year but last 6 months she notices it getting worse. Carriage Dogger Required: No Allergies latex Allergy (Verified 06/11/23 07:58) Itching HPI Colonoscopy screening HPI Details 73 year old? female with past medical hi story of fracture of right humerus, awaiting for surgery, atrial fibrillation, mitral regurgitation, aortic stenosis, hyperlipidemia, hypothyroidism, hypertension is here today for pre colonoscopy screening.? Patient was sent to us by her PCP.? Last colonoscopy was 5 years ago, no polyps found. Previously patient had colonoscopies and she had polyps.? Patient reports that in the last year or so she started having frequent bowel movements. Patient usually had a bowel movement in the morning, however recently she has a bowel movement almost every time she eats. Patient denies melena, hematochezia, unintentional weight loss or ribbon like stools.? Denies any personal or family history of gastrointestinal disease cancer.? Denies history of difficulty with sedation or anesthesia in the past.? History of sleep apnea.? Denies any history of cardiac, renal, pulmonary, or hepatic disease.?? No history of infectious? diseases like hepatitis A, B, C, HIV or tuberculosis.? Patient is on Eliquis, PAF. PFSH Medical History Rheumatoid arthritis Aortic stenosis Mitral regurgitation Afib Surgical History (Updated 06/11/23 @ 07:58 by GIOVANNY Looney) Hx of colonoscopy H/O foot surgery History of partial hysterectomy H/O hand surgery Family History (Updated 06/11/23 @ 07:58 by GIOVANNY Looney) Mother Colon polyp Social History Alcohol intake: current Alcohol intake frequency: holidays/special occasions only Patient Tobacco Use Status: Former Tobacco user Current occupational status: retired Current occupation: right hand dominant Review of Systems Const Denies weight gain and Denies weight loss ENT Reports no additional complaints, Denies dysphagia and Denies odynophagia Card Reports no additional complaints Resp Reports no additional complaints GI Denies abdominal pain, Denies belching, Denies melena, Denies bloating, Denies dysphagia, Denies excessive flatus, Denies dyspepsia, Denies heartburn, Denies diarrhea, Reports loose stools, Denies nausea, Denies odynophagia and Denies vomiting Reports no additional complaints Musc Reports no additional complaints Neuro Reports no additional complaints Psych Reports no additional complaints Endo Reports no additional complaints Physical Exam Vital Signs: Last Vital Signs Pulse 69 06/11/23 07:57 BP 159/76 H 06/11/23 07:57 BMI result Body Mass Index 28.2 Const General: healthy appearing, no acute distress and well developed Nutritional Appearance: well nourished Orientation/consciousness: patient oriented x3 Resp Effort & Inspection: normal respiratory effort, able to speak in complete sentences, no tracheal deviation and symmetric chest movement Auscultation: clear to auscultation bilaterally Cardio Rate: regular rate GI Inspection: Yes normal to inspection and No distended Palpation (GI): Soft to palpation, not firm, nontender and No hepatosplenomegaly present Auscultation: normal bowel sounds General: Yes no CVA tenderness Back/Spine/Pelvis Back: no CVA tenderness Skin General skin exam: elasticity normal, turgor normal and dry skin Neuro General: patient oriented x3 Extrem Other: Right arm in the sling Psych Appearance: grossly normal Mental Status: mental status grossly normal Assessment & Plan Assessment & Plan (1) Screen for colon cancer: Code(s): Z12.11 - Encounter for screening for malignant neoplasm of colon (2) Postprandial diarrhea: Code(s): K52.9 - Noninfective gastroenteritis and colitis, unspecified (3) IBS (irritable bowel syndrome): Code(s): K58.9 - Irritable bowel syndrome without diarrhea Qualifiers: Irritable bowel syndrome type: with diarrhea Qualified Code(s): K58.0 - Irritable bowel syndrome with diarrhea Plan Patient reports frequent bowel movements, symptoms changed in the last year or so. Patient states that it is getting worse. Every time she eats something she will have a bowel movement. Patient states that she is vegetarian and eats lot of vegetables. Will send a script for Citrucel to help her bulk stools. Discussed with patient will LOW FODMAP diet. List of food recommended as well as list of food to avoid given to patient. Patient will return in 6 weeks so we can discuss going for colonoscopy and going over prep. Will check for malabsorption, check thyroid study, rule out IBD. Patient is agreeable to this plan and verbalizes understanding of instructions. She was given the opportunity to ask questions and all questions answered. Thank you for allowing me participate in her care Orders: Orders Vitamin B12 and Folate Today R19.7 - Diarrhea, unspecified Vitamin D 25-OH (D2 and D3) Today E55.9 - Vitamin D deficiency, unspecified TSH reflex Free T4 Today K59.00 - Constipation, unspecified C Reactive Protein Today K58.9 - Irritable bowel syndrome without diarrhea Calprotectin, Fecal Today R15.9 - Full incontinence of feces Medications: New methylcellulose (laxative) (Citrucel) take it with full glass of water 500 mg PO DAILY 30 tabs 2RF K59.00 - Constipation, unspecified Coding Level of Care Code New Pt Level 4 (84694) Diagnoses Screen for colon cancer Z12.11 Postprandial diarrhea K52.9 Irritable bowel syndrome with diarrhea K58.0 Irritable bowel syndrome type: with diarrhea
[2023-06-11 07:57] VITALS: BP 159/76; PULSE 69; BMI 28.2
== END 2023-06-11 08:49 | disposition home or self-care (01) ==
PROVIDERS: Visit Provider Nurse Practitioner Family
DX: K58.0 Irritable bowel syndrome with diarrhea (principal); Z01.818 Encounter for other preprocedural examination; Z12.11 Encounter for screening for malignant neoplasm of colon
CPT/HCPCS: 99204

== ENCOUNTER 2023-06-11 07:45 | Outpatient (REF) | payer MEDICARE, SELFPAY ==
[2023-06-11 09:51] LABS: C Reactive Protein 3.52 mg/dL (< or = 0.50)
[2023-06-11 10:11] LABS: TSH reflex Free T4 1.87 uIU/mL (0.32-4.0)
[2023-06-11 10:55] LABS: Folate 12.7 ng/mL (> or = 4.0); Vitamin B12 378 pg/mL (200-900)
[2023-06-16 15:28] LABS: Vitamin D 25-OH, D2 5 ng/mL; Vitamin D 25-OH, D3 35 ng/mL; Vitamin D 25-OH, Total 40 ng/mL (30-100)
== END 2023-06-11 07:46 | disposition home or self-care (01) ==
LOC: HO.LAB 07:45
PROVIDERS: Visit Provider Nurse Practitioner Family
DX: E55.9 Vitamin D deficiency, unspecified (principal); K59.00 Constipation, unspecified; K52.9 Noninfective gastroenteritis and colitis, unspecified
CPT/HCPCS: 36415; 82306; 82607; 82746; 84443; 86140; 99202

== ENCOUNTER 2023-06-13 14:57 | Outpatient (REF) | payer MEDICARE, SELFPAY ==
--- NOTE | ~2023-06-13 | CT_ITS ---
EXAMINATION: CT SHOULDER WITHOUT CONTRAST, RIGHT CLINICAL INFORMATION: Fracture of right humerus glenoid cavity. COMPARISON: X-ray of the right shoulder May 31, 2023. TECHNIQUE: CT scan of the right shoulder was performed without contrast with reconstruction imaging performed at the acquisition workstation. This CT examination was performed using dose optimization techniques as appropriate, variously including the following: *Automated exposure control *Adjustment of mA and/or kV according to patient size (this includes techniques or standardized protocols for targeted exams where dose is matched to indication/reason for exam; i.e. extremities or head) *Use of iterative reconstruction technique DLP: 309 mGy-cm FINDINGS: There is a mildly displaced moderately comminuted fracture of the proximal humerus involving the greater tuberosity and surgical neck. There is less than 5 mm of displacement of all the fracture fragments. Along the neck, there is a 2 mm cortical step-off related to the minimally displaced fracture line. There may be some involvement of the anterolateral aspect of the articular portion of the humeral head in the area of the greater tuberosity fracture. There is no fracture extending distal to the surgical neck. There is a mildly displaced minimally comminuted fracture of the anterior glenoid involving the lower two-thirds portion of the articular surface, extending from the 1:30 o'clock to the 6 o'clock position. The fracture fragment measures up to 12 mm AP and 23 mm craniocaudal and up to 7.5 mm transverse. In the remaining portion of the glenoid, the fracture fragment is displaced/depressed approximately 2 mm with minimal if any cortical displacement of the fragment. See sagittal image 73, series 7 and axial images 36 through 42 series, 2. There is no involvement of the lesser tuberosity. There is osteoarthritis of the glenohumeral joint with marginal osteophytes involving both the humeral head and glenoid. There is a joint effusion. MISCELLANEOUS: In the partially visualized right chest, there is minimal ground-glass opacity in right upper lung, nonspecific, which could reflect scarring or atelectasis or subtle infiltrate. CT/CT shoulder RT wo IV con IMPRESSION: 1. Mildly displaced moderately comminuted fracture of the proximal humerus involving the greater tuberosity and surgical neck. 2. Mildly displaced fracture of the anterior glenoid. 3. Subtle opacity in the right upper lung, nonspecific as above. Question scarring or atelectasis or subtle infiltrate.
[2023-06-21 00:03] LABS: Calprotectin, Fecal 7 mcg/g
== END 2023-06-13 14:58 | disposition home or self-care (01) ==
LOC: HO.CT 14:57
PROVIDERS: Nurse Practitioner Family; PCP Nurse Practitioner Family; Visit Provider Physician Assistant
DX: S42.201A Unspecified fracture of upper end of right humerus, initial encounter for closed fracture (principal); S42.141A Displaced fracture of glenoid cavity of scapula, right shoulder, initial encounter for closed fracture; R15.9 Full incontinence of feces
CPT/HCPCS: 73200; 83993

== ENCOUNTER 2023-06-24 10:58 | Outpatient (REF) | payer MEDICARE, SELFPAY ==
--- NOTE | ~2023-06-24 | XR_ITS ---
EXAMINATION: XR SHOULDER, RIGHT CLINICAL INFORMATION: Pain. COMPARISON: CT right shoulder dated 06/13/2023; right shoulder radiographs dated 05/31/2023. TECHNIQUE: AP neutral and scapular Y views of the right shoulder are submitted. FINDINGS: There is bony demineralization. There is stable alignment of a mildly impacted fracture of the surgical neck of the right humerus. A mildly displaced fracture fragment is seen arising from the greater tuberosity of the proximal right humerus. There is adjacent callus formation. Again, there is a vertical fracture noted of the glenoid. The acromioclavicular and coracoclavicular intervals are normal. There is mild osteoarthritic change of the acromioclavicular joint. No dislocation is seen. There is no left pneumothorax. XR/XR shoulder RT min 2V IMPRESSION: There is stable alignment of a mildly impacted fracture of the right humeral neck, a fracture of the greater tuberosity of the proximal right humerus, and of a fracture of the glenoid process of the scapula. Mild callus formation is seen at the proximal humeral fracture sites.
== END 2023-06-24 10:59 | disposition home or self-care (01) ==
LOC: HO.HOSX 10:58
PROVIDERS: Visit Provider Physician Assistant
DX: M25.511 Pain in right shoulder (principal); S42.141A Displaced fracture of glenoid cavity of scapula, right shoulder, initial encounter for closed fracture; S42.291A Other displaced fracture of upper end of right humerus, initial encounter for closed fracture; X58.XXXA Exposure to other specified factors, initial encounter
CPT/HCPCS: 73030; 99212

== ENCOUNTER 2023-06-24 14:07 | Outpatient (AMB) | payer MEDICARE, SELFPAY ==
--- NOTE | 2023-06-24 14:15 | A.OFFVIS_ITS ---
Intake Vital Signs 06/24/23 14:16 Height 5 ft 5 in Weight 169 lb BMI 28.1 Intake Visit Reasons: OV-CT Shoulder RT review Intake Note: Quinn kim 73 year old female presents today for a CT review of right shoulder. Patient reports she is doing well, stating her pain has improved and is more tolerable. Allergies latex Allergy (Verified 06/24/23 14:26) Itching HPI OV-CT Shoulder RT review HPI Details 73-year-old female returns to the office today for follow-up right proximal humerus fracture. She had an MRI obtained of the right shoulder. She states she is doing well as her pain has subsided. She still unable to perform most activities such as bringing her hand to the top of her head. [facility] Medical History Rheumatoid arthritis Aortic stenosis Mitral regurgitation Afib Surgical History Hx of colonoscopy H/O foot surgery History of partial hysterectomy H/O hand surgery Family History (Updated 06/11/23 @ 07:58 by GIOVANNY Looney) Mother Colon polyp Social History Alcohol intake: current Alcohol intake frequency: holidays/special occasions only Patient Tobacco Use Status: Former Tobacco user Current occupational status: retired Current occupation: right hand dominant Review of Systems Const All systems reviewed & are unremarkable except as noted in HPI and below Physical Exam Vital Signs: BMI result Body Mass Index 28.1 Results Reviewed Results Reviewed: CT shoulder RT wo IV con 06/13/23 IMPRESSION: 1. Mildly displaced moderately comminuted fracture of the proximal humerus involving the greater tuberosity and surgical neck. 2. Mildly displaced fracture of the anterior glenoid. 3. Subtle opacity in the right upper lung, nonspecific as above. Question scarring or atelectasis or subtle infiltrate. X-rays of the right shoulder obtained in the office today show stable proximal humerus fracture with improved appearance of subluxation. Mild glenoid fracture Assessment & Plan Assessment & Plan (1) Fracture of glenoid cavity of right scapula: Code(s): S42.141A - Displaced fracture of glenoid cavity of scapula, right shoulder, initial encounter for closed fracture Qualifiers: Encounter type: initial encounter Fracture alignment: displaced Fracture type: closed Qualified Code(s): S42.141A - Displaced fracture of glenoid cavity of scapula, right shoulder, initial encounter for closed fracture (2) Fracture of proximal end of right humerus: Code(s): S42.201A - Unspecified fracture of upper end of right humerus, initial encounter for closed fracture Qualifiers: Encounter type: initial encounter Fracture alignment: displaced Fracture morphology: other fracture Fracture type: closed Qualified Code(s): S42.291A - Other displaced fracture of upper end of right humerus, initial encounter for closed fracture Plan Images were reviewed with Dr. Valentin today. At this time it appears the shoulder has maintain and somewhat anatomic position. The extent of her deltoid at any has seemed to resolve and she should continue to heal without any need for surgical intervention at this time. I did explain to her that our goals would be to reach a level of function in where she can bring her hand to her mouth top of her head and reach behind her back for daily activities. I cannot guarantee that she will bring her arm above shoulder height. At this time she will begin a course of physical therapy to work on gentle range of motion and periscapular stabilization. No rotator cuff strengthening at this time. She will see me back in 6 weeks with x-rays sooner if needed. Orders: Orders PT Evaluation and Treatment Today S42.141A - Displaced fracture of glenoid cavity of scapula, right shoulder, initial encounter for closed fracture, S42.201A - Unspecified fracture of upper end of right humerus, initial encounter for closed fracture XR shoulder RT min 2V Today M25.511 - Pain in right shoulder Coding Level of Care Code Global (12944) Diagnoses Closed displaced fracture of glenoid cavity of right scapula, initial encounter S42.141A Encounter type: initial encounter Fracture alignment: displaced Fracture type: closed Other closed displaced fracture of proximal end of right humerus, initial encounter S42.291A Encounter type: initial encounter Fracture alignment: displaced Fracture morphology: other fracture Fracture type: closed
[2023-06-24 14:16] VITALS: BMI 28.1
== END 2023-06-24 14:44 | disposition home or self-care (01) ==
PROVIDERS: PCP Nurse Practitioner Family; Visit Provider Physician Assistant
DX: S42.141A Displaced fracture of glenoid cavity of scapula, right shoulder, initial encounter for closed fracture (principal); S42.291A Other displaced fracture of upper end of right humerus, initial encounter for closed fracture
CPT/HCPCS: 99213

== ENCOUNTER 2023-07-23 08:05 | Outpatient (AMB) | payer MEDICARE, SELFPAY ==
[2023-07-23 08:15] VITALS: BP 124/68; PULSE 72; BMI 28.2
--- NOTE | 2023-07-23 08:15 | A.OFFVIS_ITS ---
Vital Signs 07/23/23 08:15 Height 5 ft 5 in Weight 169 lb 12.095 oz BMI 28.2 BP 124/68 Blood Pressure Location Lt brachial Position Sitting Pulse 72 Pulse Source Pulse Oximeter Intake Visit Reasons: 6 Week f/u per Angelita Intake Note: Pt presents to the office today for a 6 week follow up for IBS. Pt states she is still having a lot of gas and is using the bathroom multiple times a day. She states the bloating has gotten better. Pt denies any N/V. Allergies latex Allergy (Verified 07/23/23 08:17) Itching HPI HPI 6 Week f/u per Angelita: Details: LAST VISIT Screen for colon cancer Postprandial diarrhea IBS (irritable bowel syndrome) Plan Patient reports frequent bowel movements, symptoms changed in the last year or so. Patient states that it is getting worse. Every time she eats something she will have a bowel movement. Patient states that she is vegetarian and eats lot of vegetables. Will send a script for Citrucel to help her bulk stools. Discussed with patient will LOW FODMAP diet. List of food recommended as well as list of food to avoid given to patient. Patient will return in 6 weeks so we can discuss going for colonoscopy and going over prep. Will check for malabsorption, check thyroid study, rule out IBD. Patient is agreeable to this plan and verbalizes understanding of instructions. She was given the opportunity to ask questions and all questions answered. ? Thank you for allowing me participate in her care Orders Orders Vitamin B12 and Folate Today R19.7 Vitamin D 25-OH (D2 and D3) Today E55.9 TSH reflex Free T4 Today K59.00 C Reactive Protein Today K58.9 Calprotectin, Fecal Today R15.9 Medications New methylcellulose (laxative) (Citrucel) take it with full glass of water 500 mg PO DAILY 30 tabs 2RF K59.00 TODAY'S VISIT Patient is here today for follow-up, to discuss lab results and discuss prep in detail. Patient had normal lab workup except for CRP elevated. Patient has a history of rheumatoid arthritis. Fecal calprotectin normal. Patient continues to have occasionally loose stools postprandially. Patient is vegetarian eats mainly vegetables. Patient eats different type of beans for protein. Patient denies melena, hematochezia, unintentional weight loss or ribbon like stools. Patient denies dyspepsia, dysphagia or odynophagia. Patient denies any abdominal pain or bloating. Patient denies any issues with anesthesia in the past. No history of sleep apnea. Patient is on [employer] [facility] Medical History Rheumatoid arthritis Aortic stenosis Mitral regurgitation Afib Surgical History Hx of colonoscopy H/O foot surgery History of partial hysterectomy H/O hand surgery Family History Mother Colon polyp Social History Alcohol intake: current Alcohol intake frequency: holidays/special occasions only Patient Tobacco Use Status: Former Tobacco user Current occupational status: retired Current occupation: right hand dominant Review of Systems Const Denies weight gain and Denies weight loss ENT Reports no additional complaints, Denies dysphagia and Denies odynophagia Card Reports no additional complaints Resp Reports no additional complaints GI Denies abdominal pain, Denies belching, Denies melena, Denies bloating, Denies change in bowel habits, Denies dysphagia, Denies excessive flatus, Denies dyspepsia, Denies heartburn, Denies diarrhea, Reports loose stools, Denies nausea, Denies odynophagia and Denies vomiting Reports no additional complaints Musc Reports no additional complaints Neuro Reports no additional complaints Psych Reports no additional complaints Endo Reports no additional complaints Physical Exam Vital Signs: Last Vital Signs Pulse 72 07/23/23 08:15 BP 124/68 07/23/23 08:15 BMI result Body Mass Index 28.2 Const General: healthy appearing and no acute distress Nutritional Appearance: obese Orientation/consciousness: patient oriented x3 Resp Effort & Inspection: normal respiratory effort, able to speak in complete sentences, no tracheal deviation and symmetric chest movement Auscultation: clear to auscultation bilaterally Cardio Rate: regular rate GI Inspection: Yes normal to inspection, No distended and Yes obesity Palpation (GI): Soft to palpation, not firm, nontender and No hepatosplenomegaly present Auscultation: normal bowel sounds General: Yes no CVA tenderness Back/Spine/Pelvis Back: no CVA tenderness Skin General skin exam: elasticity normal, turgor normal and dry skin Neuro General: patient oriented x3 Extrem Other: Right arm in the sling Psych Appearance: grossly normal Mental Status: mental status grossly normal Results Reviewed Results Reviewed: Laboratory Tests 06/11/23 06/13/23 09:08 11:15 C-Reactive Protein 3.52 H Vitamin B12 378 25-OH Vitamin D Total 40 Folate 12.7 TSH 1.87 Stool Calprotectin 7 Assessment & Plan Assessment & Plan (1) Screen for colon cancer: Code(s): Z12.11 - Encounter for screening for malignant neoplasm of colon (2) Postprandial diarrhea: Code(s): K52.9 - Noninfective gastroenteritis and colitis, unspecified (3) IBS (irritable bowel syndrome): Code(s): K58.9 - Irritable bowel syndrome without diarrhea Qualifiers: Irritable bowel syndrome type: with diarrhea Qualified Code(s): K58.0 - Irritable bowel syndrome with diarrhea Plan Patient has a scheduled colonoscopy for August. Went over the prep with her again. What to expect before during and after procedure discussed with patient. Good bowel prep as well as clear liquid diet day before procedure discussed with patient. Patient is on Eliquis may hold it for 2 days unless recommended differently by her shanker out. Patient will call her shanker out and will call us back. Patient has no issues with anesthesia in the past. No history of sleep apnea. Occasional postprandial loose stools might be related to food that she eats even though patient is vegetarian sometimes certain vegetables herbs may cause postprandial loose stools. Patient was recommended to try low FODMAP diet. Avoid onions, garlic. List of food recommended as well as list of food to avoid given to patient. I will see patient after the procedure, sooner on as needed basis. She is agreeable to this plan and verbalizes understanding of instructions. She was given the opportunity to ask questions and all questions answered. Medications: New bisacodyl (Dulcolax (bisacodyl)) take 4 tabs at noon the day before your colonoscopy 20 mg (4 x 5 mg) PO ONCE 1 day 4 tabs 0RF Z12.11 - Encounter for screening for malignant neoplasm of colon polyethylene glycol 3350 (Miralax) As directed by gastroenterology department at [facility] 238 grams PO ONCE 238 grams 0RF Z12.11 - Encounter for screening for malignant neoplasm of colon Coding Level of Care Code Est Pt Level 3 (84952) Diagnoses Screen for colon cancer Z12.11 Postprandial diarrhea K52.9 Irritable bowel syndrome with diarrhea K58.0 Irritable bowel syndrome type: with diarrhea Time Spent (min) 30 Comment 20 minutes spent with patient and additional 10 minutes spent reviewing her records
== END 2023-07-23 08:58 | disposition home or self-care (01) ==
PROVIDERS: PCP Nurse Practitioner Family; Visit Provider Nurse Practitioner Family
DX: K58.0 Irritable bowel syndrome with diarrhea (principal); Z12.11 Encounter for screening for malignant neoplasm of colon
CPT/HCPCS: 99213

== ENCOUNTER → 2023-07-23 08:05 | Outpatient (BNVA) | payer MEDICARE, SELFPAY | PROVIDERS: PCP Nurse Practitioner Family; Visit Provider Nurse Practitioner Family | DX: Z01.818 Encounter for other preprocedural examination (principal); K52.9 Noninfective gastroenteritis and colitis, unspecified; K58.0 Irritable bowel syndrome with diarrhea | CPT/HCPCS: 99212 ==

== ENCOUNTER 2023-08-05 08:13 | Outpatient (REF) | payer MEDICARE, SELFPAY ==
--- NOTE | ~2023-08-05 | XR_ITS ---
EXAMINATION: XR SHOULDER, RIGHT CLINICAL INFORMATION: Pain in right shoulder. COMPARISON: X-ray of the right shoulder May 2023. CT scan of the right shoulder May 2023. TECHNIQUE: PA and lateral views of the right shoulder. FINDINGS: The minimally displaced proximal humerus fracture is redemonstrated with unchanged alignment. There is some callus formation noted. The glenoid fracture is not well appreciated on these views. There is arthrosis of the glenohumeral joint with marginal osteophytes present along the inferior aspect of humeral head. There is [id number] hypertrophic osteoarthritis of the acromioclavicular joint, unchanged. In the partially visualized chest there is calcification of the dorsal aorta. XR/XR shoulder RT min 2V IMPRESSION: 1. Healing fracture of the proximal humerus unchanged in alignment. 2. The glenoid fracture is not well appreciated on these views.
== END 2023-08-05 08:14 | disposition home or self-care (01) ==
LOC: HO.HOSX 08:13
PROVIDERS: Visit Provider Physician Assistant
DX: S42.291D Other displaced fracture of upper end of right humerus, subsequent encounter for fracture with routine healing (principal)
CPT/HCPCS: 73030; 99212

== ENCOUNTER 2023-08-05 08:45 | Outpatient (AMB) | payer MEDICARE, SELFPAY ==
[2023-08-05 08:51] VITALS: BMI 27.8
--- NOTE | 2023-08-05 08:51 | MHC.OFFVIS ---
Vital Signs 08/05/23 08:51 Height 5 ft 5 in Weight 167 lb BMI 27.8 Intake Visit Reasons: OV-Rt prox hum fx w xrays-6wk follow up Intake Note: Quinn is a 73 year old female, right hand dominant, who presents today for follow up on right proximal humeral fracture. Patient reports much improvement, no pain today. She reports she gets a pinching sendation at the base of the right shoulder when moving the arm certain ways. 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: No Accompanied by: Spouse Allergies latex Allergy (Verified 08/05/23 08:51) Itching Medication List - Last Reconciled 08/05/23 by Sunitha Hurd PA-C acetaminophen (Tylenol) 650 mg (2 x 325 mg) PO Q4H PRN apixaban (Eliquis) 5 mg PO BID bisacodyl (Dulcolax (bisacodyl)) 20 mg (4 x 5 mg) PO ONCE 1 day diltiazem HCl CD 240 mg PO DAILY levothyroxine 75 mcg PO DAILY losartan 25 mg PO DAILY methylcellulose (laxative) (Citrucel) 500 mg PO DAILY polyethylene glycol 3350 (Miralax) 238 grams PO ONCE [Vitamin D3 50,000 multiple units PO QWEEK] HPI HPI OV-Rt prox hum fx w xrays-6wk follow up: Details: 73-year-old right hand dominant female who returns to the office today for a follow-up of right proximal humerus fracture. She states she has no pain however she does experience a pinching sensation at the base of the right shoulder with moving her arm in a certain way. She is working on physical therapy with benefits. She has no other concerns today. [facility] Medical History Rheumatoid arthritis Aortic stenosis Mitral regurgitation Afib Surgical History Hx of colonoscopy H/O foot surgery History of partial hysterectomy H/O hand surgery Family History Mother Colon polyp Social History Alcohol intake: current Alcohol intake frequency: holidays/special occasions only Patient Tobacco Use Status: Former Tobacco user Current occupational status: retired Current occupation: right hand dominant Review of Systems Const All systems reviewed & are unremarkable except as noted in HPI and below Physical Exam Vital Signs: BMI result Body Mass Index 27.8 Const General: cooperative and no acute distress Orientation/consciousness: patient oriented x3 Resp Effort & Inspection: normal respiratory effort and able to speak in complete sentences Cardio Peripheral pulses: Peripheral pulses 2+ throughout Neuro General: patient oriented x3 Extrem Other: Right shoulder: Normal to inspection.No specific tenderness over the proximal humerus. She is able to bring her hand to her mouth but unable to reach the top of her head at this time. She does have weakness of the RTC. Anterior deltoid sensation intact. Elbow and wrist ROM intact. NVI. Results Reviewed Results Reviewed: X-rays of the right shoulder obtained in the office today show stable proximal humerus fracture with improved appearance of subluxation. interval healed noted. Assessment & Plan Assessment & Plan (1) Fracture of proximal end of right humerus: Code(s): S42.201A - Unspecified fracture of upper end of right humerus, initial encounter for closed fracture Category: Medical Qualifiers: Encounter type: subsequent encounter Fracture alignment: displaced Fracture healing: with routine healing Fracture morphology: other fracture Fracture type: closed Qualified Code(s): S42.291D - Other displaced fracture of upper end of right humerus, subsequent encounter for fracture with routine healing Plan She will continue working with physical therapy to regain her function and strength. We did briefly discuss the motion that I would be expecting in 6 months post injury. I would expect her to reach at the top of her head but if she continues to have limitations till her next appointment and if this inhibiting her AODL, we will proceed with an MRI of the right shoulder to further evaluate the extent of RTC. She is content with this plan and will see me back in 6-8 weeks, sooner if needed. Orders: Orders XR shoulder RT min 2V Today M25.511 - Pain in right shoulder XR DEXA axial skeleton Today S42.291D - Other displaced fracture of upper end of right humerus, subsequent encounter for fracture with routine healing, Z87.310 - Personal history of (healed) osteoporosis fracture Patient Instructions: Scribed for Sunitha Hurd PA-C, by Eddie Tamez medical claims manager, on 08/05/2023 at 8:45 AM EST. I, Sunitha Hurd PA-C, have personally reviewed and agree with the information entered by the scribe. Coding Level of Care Code Global (72402) Diagnoses Other closed displaced fracture of proximal end of right humerus with routine healing, subsequent encounter S42.291D Encounter type: subsequent encounter Fracture alignment: displaced Fracture healing: with routine healing Fracture morphology: other fracture Fracture type: closed
== END 2023-08-05 09:11 | disposition home or self-care (01) ==
PROVIDERS: PCP Nurse Practitioner Family; Visit Provider Physician Assistant
DX: S42.291D Other displaced fracture of upper end of right humerus, subsequent encounter for fracture with routine healing (principal)
CPT/HCPCS: 99213

== ENCOUNTER 2023-09-16 08:38 | Outpatient (REF) | payer MEDICARE, SELFPAY ==
--- NOTE | ~2023-09-16 | XR_ITS ---
EXAMINATION: XR SHOULDER, RIGHT CLINICAL INFORMATION: Pain in the right shoulder COMPARISON: Prior examinations most recent right shoulder July 2023 TECHNIQUE: 3 views of the right shoulder. FINDINGS: There is deformity of the proximal humerus compatible with previous fracture and at least partial healing similar to prior. Deformity of the anterior inferior glenoid compatible with glenoid fracture and displacement. Cannot clearly assess whether not there is any osseous bridging present. Alignment is unchanged. Arthrosis of the acromioclavicular joint unchanged. XR/XR shoulder RT min 2V IMPRESSION: 1. Stable appearance of the right shoulder compared with [id number]. 2. Deformity of the proximal humerus compatible with previous fracture and at least partial healing.
== END 2023-09-16 08:39 | disposition home or self-care (01) ==
LOC: HO.HOSX 08:38
PROVIDERS: Visit Provider Physician Assistant
DX: S42.291D Other displaced fracture of upper end of right humerus, subsequent encounter for fracture with routine healing (principal)
CPT/HCPCS: 73030; 99212

== ENCOUNTER 2023-09-16 08:38 | Outpatient (AMB) | payer MEDICARE, SELFPAY ==
--- NOTE | 2023-09-16 09:06 | A.OFFVIS_ITS ---
Vital Signs 09/16/23 09:13 Height 5 ft 5 in Weight 167 lb BMI 27.8 Intake Visit Reasons: OV- f/u rt prox hum fx with xrays Intake Note: Quinn is a 73 year old female, right hand dominant, who presents today for follow up on right proximal humeral fracture. Patient reports she continues to attend PT. She has discomfort/pain with certain arm positions. Allergies latex Allergy (Verified 09/16/23 09:12) Itching Medication List - Last Reconciled 09/16/23 by Sunitha uHrd PA-C acetaminophen (Tylenol) 650 mg (2 x 325 mg) PO Q4H PRN apixaban (Eliquis) 5 mg PO BID bisacodyl (Dulcolax (bisacodyl)) 20 mg (4 x 5 mg) PO ONCE 1 day diltiazem HCl CD 240 mg PO DAILY levothyroxine 75 mcg PO DAILY losartan 25 mg PO DAILY methylcellulose (laxative) (Citrucel) 500 mg PO DAILY polyethylene glycol 3350 (Miralax) 238 grams PO ONCE [Vitamin D3 50,000 multiple units PO QWEEK] HPI HPI OV- f/u rt prox hum fx with xrays: Details: 73-year-old right hand dominant female who returns to the office today for a follow-up of right shoulder fracture. She states she has pain and discomfort in her shoulder with certain arm positions such as wearing her earrings. She continues to work with physical therapy as instructed. She has no other concerns today. PFSH Medical History Rheumatoid arthritis Aortic stenosis Mitral regurgitation Afib Surgical History Hx of colonoscopy H/O foot surgery History of partial hysterectomy H/O hand surgery Family History Mother Colon polyp Social History Alcohol intake: current Alcohol intake frequency: holidays/special occasions only Patient Tobacco Use Status: Former Tobacco user Current occupational status: retired Current occupation: right hand dominant Review of Systems Const All systems reviewed & are unremarkable except as noted in HPI and below Physical Exam Vital Signs: BMI result Body Mass Index 27.8 Const General: cooperative and no acute distress Orientation/consciousness: patient oriented x3 Resp Effort & Inspection: normal respiratory effort and able to speak in complete sentences Cardio Peripheral pulses: Peripheral pulses 2+ throughout Neuro General: patient oriented x3 Extrem Other: Right shoulder: Normal to inspection.No specific tenderness over the proximal humerus. She is able to bring her hand to her mouth but unable to reach the top of her head at this time. She does have weakness of the RTC. Anterior deltoid sensation intact. Elbow and wrist ROM intact. NVI. Results Reviewed Results Reviewed: X-rays of the right shoulder obtained in the office today show stable proximal humerus fracture with improved appearance of subluxation. interval healed noted. Assessment & Plan Assessment & Plan (1) Fracture of proximal end of right humerus: Code(s): S42.201A - Unspecified fracture of upper end of right humerus, initial encounter for closed fracture Category: Medical Qualifiers: Encounter type: subsequent encounter Fracture alignment: displaced Fracture healing: with routine healing Fracture morphology: other fracture Fracture type: closed Qualified Code(s): S42.291D - Other displaced fracture of upper end of right humerus, subsequent encounter for fracture with routine healing Plan She is going to work with physical therapy to begin RTC and periscapular strengthening. Our goal over the next 8 weeks is to improve her strength so that she can perform activities above shoulder height. I did explain that there is some damage to the RTC causing her some limitations. I would like to see her back in 8 weeks with x-rays to determine the next step in her treatment, sooner if needed. Orders: Orders XR shoulder RT min 2V Today M25.511 - Pain in right shoulder PT Evaluation and Treatment Today S42.291D - Other displaced fracture of upper end of right humerus, subsequent encounter for fracture with routine healing Patient Instructions: Scribed for Sunitha Hurd PA-C, by Eddie Tamez diagnostic medical sonographer, on 09/16/2023 at 9:00 AM EST.? I, Sunitha Hurd PA-C, have personally reviewed and agree with the information entered by the scribe. Coding Level of Care Code Global (15113) Diagnoses Other closed displaced fracture of proximal end of right humerus with routine healing, subsequent encounter S42.291D Encounter type: subsequent encounter Fracture alignment: displaced Fracture healing: with routine healing Fracture morphology: other fracture Fracture type: closed
[2023-09-16 09:13] VITALS: BMI 27.8
== END 2023-09-16 10:39 | disposition home or self-care (01) ==
PROVIDERS: PCP Nurse Practitioner Family; Visit Provider Physician Assistant
DX: S42.291D Other displaced fracture of upper end of right humerus, subsequent encounter for fracture with routine healing (principal)
CPT/HCPCS: 99213

== ENCOUNTER 2023-11-08 08:00 | Outpatient (RCR) | payer MEDICARE, SELFPAY ==
--- NOTE | 2023-07-11 08:47 | MHC.PT.EP ---
[facility] [place] Office [place] Office [place] Office [address] [phone] F: [phone] F: [phone] F: [phone] F: [phone] Physical Therapy Plan of Care Date of Evaluation: 07/11/23 Date of Surgery: 05/31/23 Diagnosis: fx of upper end of right humerus (RL) Assessment: pt is a 73 y/o female presenting to physical therapy w/ referring diagnosis of displaced fracture of glenoid cavity of scapula, right shoulder; unspecified fracture of upper end of right humerus. pt's last xray on 06/24/23 revealed some callus formation at humeral fracture but no change at glenoid. Impairments include pain, decreased range of motion, decreased strength, impaired functional mobility, impaired postural awareness, and altered ambulation mechanics. pt is a good candidate for skilled PT due to age, potential remediation of impairments, typical disease/condition progression and prognosis, comorbidities, and motivation. pt would benefit from skilled PT intervention to provide a tailored strengthening and stretching exercise program, functional training, gait training, postural re-training, neuromuscular re-education, modalities as needed for pain, equipment safety demonstration. Frequency and Duration: The patient will be seen 2x/wk for 8 wks Short Term Goals: pt will be I w/ HEP to promote self-management of condition. pt will improve R shoulder flexion by at least 10 degrees to promote ease in reaching for objects. Office Support Assistant Goals: pt will improve R shoulder flexion and abduction strength on R side to at least 4/5 to promote ease in meal prep. pt will demo R shoulder functional ER to at least top of head to promote ease in upper body ADLs. Treatment Plan: Modalities to reduce pain, spasms and effusion. Manual therapy to restore motion and function. Therapeutic exercise to improve strength and flexibility. Neuromuscular re-education for posture and balance. Therapeutic activities to return to functional activities of daily living. Electronically signed by: Patrizia Foreman PT, DPT Please sign and return to therapist. Thank you for your referral.
--- NOTE | 2023-11-20 16:27 | MHC.PT.DC ---
[facility] [place] Office [place] Office [place] Office [address] Roman Palmer [address] [phone] F: [phone] F: [phone] F: [phone] F: [phone] Physical Therapy Discharge Report Diagnosis: fx of upper end of right humerus (RL) Date of Surgery: 05/31/23 Date of Evaluation: 07/11/23 Date of Discharge: 11/20/23 Treatments to Date: 22 Cancellations to Date: 6 No Shows to Date: 0 Discharge Status: Independent with HEP Discharge Summary: Pt I w/ HEP for self-management. Pt improved R shoulder ROM, allowing her to perform functional tasks at home. Pt D/C d-t responsibilities at home and poor prognosis to improve strength d-t permanence of her impairments regarding GH alignment. Electronically signed by: Patrizia Martinez, PT, DPT Please sign and return to therapist. Thank you for your referral.
== END 2023-11-20 16:27 | disposition home or self-care (01) ==
LOC: HO.PT 08:00
PROVIDERS: PCP Nurse Practitioner Family; Visit Provider Physician Assistant
DX: S42.141D Displaced fracture of glenoid cavity of scapula, right shoulder, subsequent encounter for fracture with routine healing (principal); S42.201D Unspecified fracture of upper end of right humerus, subsequent encounter for fracture with routine healing
CPT/HCPCS: 97110; 97162; 97530

== ENCOUNTER 2023-11-27 08:32 | Outpatient (REF) | payer MEDICARE, SELFPAY ==
--- NOTE | ~2023-11-27 | XR_ITS ---
EXAMINATION: XR SHOULDER, RIGHT CLINICAL INFORMATION: Right shoulder pain. COMPARISON: 09/16/2023. TECHNIQUE: 3 views of the right shoulder. FINDINGS: Bones are osteopenic. Again seen is a depressed fracture at the anteroinferior glenoid. The humeral fracture lines are not well seen on this study, likely due to progressive osseous bridging. There is moderate degenerative arthritis at the glenohumeral joint with nonunion joint space narrowing, articular cortical irregularity, and marginal osteophytes. Moderate acromioclavicular osteoarthritis. No new fractures. XR/XR shoulder RT min 2V IMPRESSION: 1. Healing humeral fracture. Unchanged alignment of the glenoid fracture. 2. Moderate glenohumeral and acromioclavicular osteoarthritis. Electronically signed by: Godwin Meyer MD 12/03/2023 10:07 AM EDT
== END 2023-11-27 08:33 | disposition home or self-care (01) ==
LOC: HO.XRAY 08:32
PROVIDERS: PCP Nurse Practitioner Family; Visit Provider Physician Assistant
DX: M25.511 Pain in right shoulder (principal)
CPT/HCPCS: 73030; 99212

== ENCOUNTER 2023-11-27 09:26 | Outpatient (AMB) | payer MEDICARE, SELFPAY ==
--- NOTE | 2023-11-27 09:32 | MHC.OFFVIS ---
Vital Signs 11/27/23 09:48 Height 5 ft 5 in Weight 167 lb BMI 27.8 Intake Visit Reasons: OV- f/u rt prox hum fx Intake Note: Quinn a 73 year old right hand dominant female who presents today for a follow up of right humeral fx, DOI 05/31/23. Patient reports she is doing well, states no concerns today. She does have intermittent soreness however she feels this is caused from her arthritis. She has completed PT. Allergies latex Allergy (Verified 11/27/23 09:48) Itching Medication List - Last Reconciled 11/27/23 by Sunitha Hurd PA-C acetaminophen (Tylenol) 650 mg (2 x 325 mg) PO Q4H PRN apixaban (Eliquis) 5 mg PO BID bisacodyl (Dulcolax (bisacodyl)) 20 mg (4 x 5 mg) PO ONCE 1 day diltiazem HCl CD 240 mg PO DAILY levothyroxine 75 mcg PO DAILY losartan 25 mg PO DAILY methylcellulose (laxative) (Citrucel) 500 mg PO DAILY polyethylene glycol 3350 (Miralax) 238 grams PO ONCE [Vitamin D3 50,000 multiple units PO QWEEK] HPI HPI OV- f/u rt prox hum fx: Details: 73-year-old right hand dominant female who returns to the office today for a follow-up of right shoulder fracture, 05/31/23. She states she has intermittent soreness in her shoulder that is aggravated with overhead reaching however she is doing well otherwise. She has completed her physical therapy sessions. She has no other concerns today. [facility] Medical History (Updated 11/22/23 @ 10:10 by KYRIE Clayton) Rheumatoid arthritis Aortic stenosis Mitral regurgitation Afib Surgical History Hx of colonoscopy H/O foot surgery History of partial hysterectomy H/O hand surgery Family History Mother Colon polyp Social History Alcohol intake: current Alcohol intake frequency: holidays/special occasions only Patient Tobacco Use Status: Former Tobacco user Current occupational status: retired Current occupation: right hand dominant Review of Systems Const All systems reviewed & are unremarkable except as noted in HPI and below Physical Exam Vital Signs: BMI result Body Mass Index 27.8 Const General: cooperative and no acute distress Orientation/consciousness: patient oriented x3 Resp Effort & Inspection: normal respiratory effort and able to speak in complete sentences Cardio Peripheral pulses: Peripheral pulses 2+ throughout Neuro General: patient oriented x3 Extrem Other: Right shoulder: Normal to inspection.No specific tenderness over the proximal humerus. She is able to bring her hand to her mouth but unable to reach the top of her head at this time. She does have good strength of the RTC. Anterior deltoid sensation intact. Elbow and wrist ROM intact. NVI. Results Reviewed Results Reviewed: X-rays of the right shoulder obtained in the office today show stable proximal humerus fracture with improved appearance of subluxation. interval healed noted. Assessment & Plan Assessment & Plan (1) Fracture of proximal end of right humerus: Code(s): S42.201A - Unspecified fracture of upper end of right humerus, initial encounter for closed fracture Category: Medical Qualifiers: Encounter type: subsequent encounter Fracture alignment: displaced Fracture healing: with routine healing Fracture morphology: other fracture Fracture type: closed Qualified Code(s): S42.291D - Other displaced fracture of upper end of right humerus, subsequent encounter for fracture with routine healing Plan She will continue working on exercises to improve his motion and strength. She will increase activities as tolerated and if symptoms persist or worsen, patient will contact the office, otherwise follow-up as needed. Orders: Orders XR shoulder RT min 2V Today M25.511 - Pain in right shoulder Patient Instructions: Scribed for Sunitha Hurd PA-C, by Eddie Tamez medical transcriber, on 11/27/2023 at 9:30 AM EST.? I, Sunitha Hurd PA-C, have personally reviewed and agree with the information entered by the scribe. Coding Level of Care Code Global (34670) Diagnoses Other closed displaced fracture of proximal end of right humerus with routine healing, subsequent encounter S42.291D Encounter type: subsequent encounter Fracture alignment: displaced Fracture healing: with routine healing Fracture morphology: other fracture Fracture type: closed
[2023-11-27 09:48] VITALS: BMI 27.8
== END 2023-11-27 10:36 | disposition home or self-care (01) ==
PROVIDERS: PCP Nurse Practitioner Family; Visit Provider Physician Assistant
DX: S42.291D Other displaced fracture of upper end of right humerus, subsequent encounter for fracture with routine healing (principal)
CPT/HCPCS: 99213

== ENCOUNTER → 2023-12-03 05:55 | Day surgery (SDC) | payer MEDICARE, SELFPAY ==
[2023-11-28 14:53] VITALS: BMI 28.3
--- NOTE | 2023-11-29 09:10 | HO.ANESPROP2 ---
HPI - Anesthesia Eval Consult details Narrative: 73yo F for Colonoscopy Cardiac optimized Eliquis for afib PMFSH Active Problems Active Problems: All Active Problems Chronic anticoagulation (Acute) History of healed fragility fracture (Acute) Fracture of glenoid cavity of right scapula (Acute) Fracture of proximal end of right humerus (Acute) Afib (Acute) Past Medical History Medical History (Updated 11/28/23 @ 14:54 by Nancy Tamez RN) Rheumatoid arthritis Aortic stenosis Mitral regurgitation Afib Family History Family History Mother Colon polyp Surgical History Surgical History Hx of colonoscopy H/O foot surgery History of partial hysterectomy H/O hand surgery Social History Social History Alcohol intake: current Alcohol intake frequency: holidays/special occasions only Patient Tobacco Use Status: Former Tobacco user Current occupational status: retired Current occupation: right hand dominant Meds Allergies Allergy/AdvReac Type Severity Reaction Status Date / Time latex Allergy Itching Verified 11/27/23 09:48 Home Medications ?Medication ?Instructions ?Recorded ?Confirmed ?Last Taken ?Type Vitamin D3 50,000 units PO QWEEK 06/02/23 11/27/23 Unknown History apixaban 5 mg tablet (Eliquis) 5 mg PO BID 06/02/23 11/28/23 Unknown History diltiazem HCl 240 mg 240 mg PO DAILY 06/02/23 11/28/23 Unknown History capsule,extended release 24 hr levothyroxine 75 mcg tablet 75 mcg PO DAILY 06/02/23 11/28/23 Unknown History losartan 25 mg tablet 25 mg PO DAILY 06/02/23 11/28/23 Unknown History alendronate 35 mg tablet 35 mg PO QWEEK 11/28/23 11/28/23 Unknown History Exam Height,Weight and Vital Signs: Height 5 ft 5 in Weight 77.111 kg Pertinent Lab Results Pertinent Lab Results: Laboratory Tests 06/01/23 15:26 WBC 9.0 Hgb 12.3 Hct 37.1 Plt Count 289 Sodium 138 Potassium 4.3 Chloride 101 Carbon Dioxide 27 BUN 17 H Creatinine 0.67 Narrative Narrative: ECHO 2021 Mild to mod mitral regurg, eccentric MR Mild to Mod Assessment and Plan Assessment Anesthesia Assessment: Chart Reviewed
== END ==
LOC: HO.SSS 05:56
PROVIDERS: PCP Nurse Practitioner Family; Visit Provider Internal Medicine Gastroenterology
DX: Z12.11 Encounter for screening for malignant neoplasm of colon (principal); Z53.8 Procedure and treatment not carried out for other reasons

== ENCOUNTER 2024-06-29 08:23 | Outpatient (AMB) | payer MEDICARE, SELFPAY ==
[2024-06-29 08:24] VITALS: BP 124/68; PULSE 72; O2SAT 97; BMI 29.1
--- NOTE | 2024-06-29 08:24 | MHC.OFFVIS ---
Vital Signs 06/29/24 08:24 Height 5 ft 5 in Weight 175 lb BMI 29.1 BP 124/68 Blood Pressure Location Lt brachial Position Sitting Pulse 72 Pulse Oximetry (%) 97 Oxygen Delivery Method Room Air Intake Visit Reasons: ibs Intake Note: Patient yearly follow up for IBS. Patient cc: small amount of rectal bleeding/light red and dark BM/not taking pepto bismol. 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 Went over the prep with her again. What to expect before during and after procedure discussed with patient. Good bowel prep as well as clear liquid diet day before procedure discussed with patient. Patient is on Eliquis may hold it for 2 days unless recommended differently by her client delivery manager. Patient will call her client delivery manager and will call us back. Patient has no issues with anesthesia in the past. No history of sleep apnea. Occasional postprandial loose stools might be related to food that she eats even though patient is vegetarian sometimes certain vegetables herbs may cause postprandial loose stools. Patient was recommended to try low FODMAP diet. Avoid onions, garlic. List of food recommended as well as list of food to avoid given to patient. I will see patient after the procedure, sooner on as needed basis. She is agreeable to this plan and verbalizes understanding of instructions. She was given the opportunity to ask questions and all questions answered. Medications New bisacodyl (Dulcolax (bisacodyl)) take 4 tabs at noon the day before your colonoscopy 20 mg (4 x 5 mg) PO ONCE 1 day 4 tabs 0RF Z12.11 polyethylene glycol 3350 (Miralax) As directed by gastroenterology department at [facility] 238 grams PO ONCE 238 grams 0RF Z12.11 TODAY'S VISIT Patient was scheduled for colonoscopy last August, however for some reason colonoscopy was canceled. Patient continues to have 2-3 bowel movements a day. Still takes Metamucil daily. Patient reports occasional blood in his stool. States that she was told the she has internal hemorrhoids. Patient denies any other GI concerning symptoms. No issues with anesthesia in the past. Patient is on Eliquis. Sees her client delivery manager in June. Patient is also scheduled for ECHO next month. Patient will be leaving to [facility] end of July and would like to go for the procedure before. [facility] Medical History (Updated 11/28/23 @ 14:54 by Nancy Tamez RN) Rheumatoid arthritis Aortic stenosis Mitral regurgitation Afib Surgical History Hx of colonoscopy H/O foot surgery History of partial hysterectomy H/O hand surgery Family History Mother Colon polyp Social History Alcohol intake: current Alcohol intake frequency: holidays/special occasions only Patient Tobacco Use Status: Former Tobacco user Current occupational status: retired Current occupation: right hand dominant Review of Systems Const Denies weight gain and Denies weight loss ENT Reports no additional complaints, Denies dysphagia and Denies odynophagia Card Reports no additional complaints Resp Reports no additional complaints GI Denies abdominal pain, Denies belching, Denies melena, Reports bloating, Reports hematochezia (Occasional), Denies change in bowel habits, Denies dysphagia, Denies excessive flatus, Denies dyspepsia, Denies heartburn, Denies diarrhea, Denies loose stools, Denies nausea, Denies odynophagia and Denies vomiting Reports no additional complaints Musc Reports no additional complaints Neuro Reports no additional complaints Psych Reports no additional complaints Endo Reports no additional complaints Physical Exam Vital Signs: Last Vital Signs Pulse 72 06/29/24 08:24 BP 124/68 06/29/24 08:24 Pulse Ox 97 06/29/24 08:24 Oxygen Delivery Method Room Air 06/29/24 08:24 BMI result Body Mass Index 29.1 Const General: healthy appearing and no acute distress Nutritional Appearance: obese Orientation/consciousness: patient oriented x3 Resp Effort & Inspection: normal respiratory effort, able to speak in complete sentences, no tracheal deviation and symmetric chest movement Auscultation: clear to auscultation bilaterally Cardio Rate: regular rate GI Inspection: Yes normal to inspection, No distended and Yes obesity Palpation (GI): Soft to palpation, not firm, nontender and No hepatosplenomegaly present Auscultation: normal bowel sounds General: Yes no CVA tenderness Back/Spine/Pelvis Back: no CVA tenderness Skin General skin exam: elasticity normal, turgor normal and dry skin Neuro General: patient oriented x3 Extrem Other: Right arm in the sling Psych Appearance: grossly normal Mental Status: mental status grossly normal Assessment & Plan Assessment & Plan (1) Screen for colon cancer: Code(s): Z12.11 - Encounter for screening for malignant neoplasm of colon (2) Postprandial diarrhea: Code(s): K52.9 - Noninfective gastroenteritis and colitis, unspecified (3) IBS (irritable bowel syndrome): Code(s): K58.9 - Irritable bowel syndrome, unspecified Qualifiers: Irritable bowel syndrome type: without diarrhea Qualified Code(s): K58.9 - Irritable bowel syndrome, unspecified Plan Message sent to surgical schedulers to book procedure for patient. Message sent to RN to call Cardiology for clearance. Patient denies any issues with anesthesia in the past. No history of sleep apnea. Patient is on Eliquis. What to expect before during and after procedure discussed with patient. Stressed the importance of good bowel prep and clear liquid diet day before procedure. I will see her after the procedure sooner on as needed basis. Patient is agreeable to this plan and verbalizes understanding of instructions. She was given the opportunity to ask questions and all questions answered. Thank you for allowing me to participate in her care Medications: Changed From polyethylene glycol 3350 As directed by gastroenterology department at [facility] 238 grams PO ONCE 238 grams 0RF Z12.11 - Encounter for screening for malignant neoplasm of colon To polyethylene glycol 3350 (Miralax) As directed by gastroenterology department at [facility] 238 grams PO ONCE 238 grams 0RF Z12.11 - Encounter for screening for malignant neoplasm of colon Refilled bisacodyl (Dulcolax (bisacodyl)) take 4 tabs at noon the day before your colonoscopy 20 mg (4 x 5 mg) PO ONCE 4 tabs 0RF 1 day Z12.11 - Encounter for screening for malignant neoplasm of colon Coding Level of Care Code Est Pt Level 3 (16861) Diagnoses Screen for colon cancer Z12.11 Postprandial diarrhea K52.9 Irritable bowel syndrome without diarrhea K58.9 Irritable bowel syndrome type: without diarrhea Time Spent (min) 30 Comment 20 minutes spent with patient and additional 10 minutes spent reviewing her records
== END 2024-06-29 12:22 | disposition home or self-care (01) ==
LOC: HO.HGI 08:23
PROVIDERS: PCP Nurse Practitioner Family; Visit Provider Nurse Practitioner Family
DX: Z12.11 Encounter for screening for malignant neoplasm of colon (principal); K58.0 Irritable bowel syndrome with diarrhea
CPT/HCPCS: 99024

== ENCOUNTER → 2024-06-29 08:23 | Outpatient (BNVA) | payer MEDICARE, SELFPAY | PROVIDERS: PCP Nurse Practitioner Family; Visit Provider Nurse Practitioner Family | DX: K58.9 Irritable bowel syndrome, unspecified (principal); K52.9 Noninfective gastroenteritis and colitis, unspecified | CPT/HCPCS: 99212 ==